=== PATIENT | male | born 1950 | race Caucasian/White ===

== ENCOUNTER 2018-08-03 10:15 | Inpatient (IN) | payer OTHER, MEDICARE ==
[2018-08-03] MEDS ORDERED: SODIUM CHLORIDE 0.9% 1,000 ML IV STA (10:26)
--- NOTE | 2018-08-03 10:27 | ED ---
Chest Pain HPI - General Chief Complaint: Chest Pain Stated Complaint: CHEST PAIN Time Seen by Provider: 08/03/18 10:26 Source: patient, RN notes reviewed, old records reviewed Mode of arrival: ambulatory Limitations: no limitations - History of Present Illness Initial Comments: This is a 68-year-old male the ER for evasive chest pain left-sided chest pain left chest wall pain leg to his back. No shortness of breath. No prior history of similar pain pain. Severe today severe with heaviness on his chest as well. No prior cardiac evaluations. No bowel pain no nausea no vomiting, no diarrhea. No shortness of breath no diaphoresis MD Complaint: chest pain -: days(s) (4) Onset: during rest, during exertion Pain Location: substernal, left chest Pain Radiation: none Severity: moderate Severity scale (1-10): 5 Quality: tightness Consistency: constant Improves With: nothing Worsens With: nothing Anginal Symptoms: dyspnea Other Symptoms: cough - Related Data Home Medications Medication Instructions Recorded Confirmed Aspirin 975 mg PO Q8H PRN 08/03/18 08/03/18 Allergies Allergy/AdvReac Type Severity Reaction Status Date / Time No Known Allergies Allergy Verified 08/03/18 10:56 Review of Systems ROS Statement: Those systems with pertinent positive or pertinent negative responses have been documented in the HPI. ROS Other: All systems not noted in ROS Statement are negative. EKG Findings - EKG Comments: EKG Findings:: EKG shows sinus bradycardia rate of 58, CT 1:30, QRS 90, QTc 420 Past Medical History Past Medical History: No Reported History History of Any Multi-Drug Resistant Organisms: None Reported Past Surgical History: No Surgical Hx Reported Additional Past Surgical History / Comment(s): neck Past Psychological History: No Psychological Hx Reported Smoking Status: Current every day smoker Past Alcohol Use History: Occasional Past Drug Use History: None Reported General Exam Limitations: no limitations General appearance: alert, in no apparent distress Head exam: Present: atraumatic, normocephalic, normal inspection Eye exam: Present: normal appearance, PERRL, EOMI. Absent: scleral icterus, conjunctival injection, periorbital swelling ENT exam: Present: normal exam, mucous membranes moist Neck exam: Present: normal inspection. Absent: tenderness, meningismus, lymphadenopathy Respiratory exam: Present: normal lung sounds bilaterally. Absent: respiratory distress, wheezes, rales, rhonchi, stridor Cardiovascular Exam: Present: regular rate, normal rhythm, normal heart sounds. Absent: systolic murmur, diastolic murmur, rubs, gallop, clicks GI/Abdominal exam: Present: soft, normal bowel sounds. Absent: distended, tenderness, guarding, rebound, rigid Extremities exam: Present: normal inspection, full ROM, normal capillary refill. Absent: tenderness, pedal edema, joint swelling, calf tenderness Back exam: Present: normal inspection Neurological exam: Present: alert, oriented X3, CN II-XII intact Psychiatric exam: Present: normal affect, normal mood Skin exam: Present: warm, dry, intact, normal color. Absent: rash Course Vital Signs 08/03/18 08/03/18 10:17 10:49 Temperature 97.9 F Pulse Rate 71 Pulse Rate [ 65 English As A Second Language [employer] ] Respiratory 22 Rate Blood Pressure 173/95 O2 Sat by Pulse 99 Oximetry - Reevaluation(s) Reevaluation #1: 08/03/18 15:08 Medical record reviewed Reevaluation #2: 08/03/18 15:08 Patient does have continue persistent chest pain Chest Pain MDM - MDM 68 male the ER for evaluation be admitted for multifactorial chest pain, patient does have a left lung mass which could because of pain, patient has left -sided chest pain which could be from his heart and elevated pancreatic enzymes but no no abdominal pain currently. We did have CT chest abdomen pelvis ultrasound gallbladder showing the above findings Disposition Clinical Impression: Chest pain, Pancreatitis, Lung mass Disposition: ADMITTED IP TO THIS HOSP Condition: Undetermined Instructions (If sedation given, give patient instructions): Chest Pain (ED) Is patient prescribed a controlled substance at d/c from ED?: No Referrals: [facility],Clinic [Primary Care Provider] - 1-2 days
[2018-08-03 11:17] LABS: Basophils % (A) 0 %; Eosinophils # (A) 0.2 k/uL (0-0.7); Eosinophils % (A) 2 %; Lymphocytes # (A) 1.5 k/uL (1.0-4.8); Lymphocytes % (A) 18 %; MCH 28.2 pg (25.0-35.0); MCHC 31.8 g/dL (31.0-37.0); MCV 88.5 fL (80.0-100.0); Mean Platelet Volume 7.3; Monocytes # (A) 0.4 k/uL (0-1.0); Monocytes % (A) 5 %; Neutrophils # (A) 6.2 k/uL (1.3-7.7); Neutrophils % (A) 73 %; Platelet Count 257 k/uL (150-450); RBC 4.97 m/uL (4.30-5.90); RDW 14.1 % (11.5-15.5); WBC 8.5 k/uL (3.8-10.6)
[2018-08-03 11:25] LABS: ALT 20 U/L (21-72); AST 19 U/L (17-59); Albumin 4.1 g/dL (3.5-5.0); Alkaline Phosphatase 62 U/L (38-126); Anion Gap 8 mmol/L; Blood Urea Nitrogen 20 mg/dL (9-20); Calcium 9.6 mg/dL (8.4-10.2); Carbon Dioxide 24 mmol/L (22-30); Chloride 109 mmol/L (98-107); Glucose 107 mg/dL (74-99); Lipase 755 U/L (23-300); Magnesium 1.9 mg/dL (1.6-2.3); Potassium 4.8 mmol/L (3.5-5.1); Sodium 141 mmol/L (137-145); Total Bilirubin 0.4 mg/dL (0.2-1.3); Total Protein 7.2 g/dL (6.3-8.2)
[2018-08-03 11:28] LABS: D-Dimer 0.53 mg/L FEU (<0.60); INR 0.9 (<1.2); Partial Thromboplastin Time 24.6 sec (22.0-30.0); Prothrombin Time 9.9 sec (9.0-12.0)
[2018-08-03 11:41] LABS: Creatine Kinase 52 U/L (55-170)
[2018-08-03 11:54] LABS: Creatine Kinase MB 0.7 ng/mL (0.0-2.4); Troponin I <0.012 ng/mL (0.000-0.034)
--- NOTE | 2018-08-03 11:59 | XR ---
EXAMINATION TYPE: XR chest 2V DATE OF EXAM: 08/03/2018 COMPARISON: NONE HISTORY: Shortness of breath TECHNIQUE: Frontal and lateral views of the chest are obtained. FINDINGS: Scattered senescent parenchymal changes noted. Hyperinflation compatible with COPD. No evidence for infiltrate. No evidence for atelectasis. Heart size is stable. Mediastinal structures are stable and grossly unremarkable. No evidence for hilar prominence. Degenerative changes dorsal spine. IMPRESSION: 1. No evidence for acute pulmonary disease.
--- NOTE | 2018-08-03 12:12 | CT ---
EXAMINATION TYPE: CT angio chest DATE OF EXAM: 08/03/2018 COMPARISON: HISTORY: Chest pain CT DLP: 1071.1 mGycm Automated exposure control for dose reduction was used. CONTRAST: CTA scan of the thorax is performed with IV Contrast, patient injected with 100 mL of Isovue 370, pul monary embolism protocol. MIP images are created and reviewed. 3D reconstructed images are created on an independent workstation and reviewed. FINDINGS: LUNGS: The lungs are remarkable for a left lower lobe spiculated mass measuring approximately 2 cm x 1.6 cm x 2.2 cm with pleural extension. Central focus of air density is present. There is no pleural effusion or pneumothorax seen. The tracheobronchial tree is patent. AORTA: No additional significant abnormality is seen. MEDIASTINUM: There is satisfactory enhancement of the pulmonary artery and its branches, there is no CT evidence for pulmonary embolism. There are no greater than 1 cm hilar or mediastinal lymph nodes. No pericardial effusion is seen. OTHER: No additional significant abnormality is seen. IMPRESSION: LEFT LOWER LOBE LUNG MASS WORRISOME FOR BRONCHOGENIC CARCINOMA.
--- NOTE | 2018-08-03 12:20 | CT ---
EXAMINATION TYPE: CT abdomen pelvis w con DATE OF EXAM: 08/03/2018 COMPARISON: None HISTORY: chest pain, lung mass CT DLP: 1071.1 mGycm Automated exposure control for dose reduction was used. TECHNIQUE: Helical acquisition of images from the lung bases through the pelvis have been completed. CONTRAST: Performed without Oral Contrast and with IV Contrast, patient injected with 100 mL of Isovue 370. FINDINGS: LUNG BASES: No significant abnormality is appreciated. AORTA: No significant abnormality is appreciated. LIVER/GB: Multiple low dense foci within the liver likely represent cysts. Gallbladder is remarkable for some luminal abnormalities which may represent gallstones. PANCREAS: No significant abnormality is seen. SPLEEN: No significant abnormality is seen. ADRENALS: No significant abnormality is seen. KIDNEYS: No significant abnormality is seen. REPRODUCTIVE ORGANS: Prostate is enlarged shows associated calcifications BOWEL: Diverticular changes associated with the sigmoid colon FREE AIR: No Free Air visible. ASCITES: None visible. PELVIC ADENOPATHY: None visualized. RETROPERITONEAL ADENOPATHY: No Retroperitoneal Adenopathy visible. URINARY BLADDER: No significant abnormality is seen. OSSEOUS STRUCTURES: Osteoarthritic change is present within the hips, degenerative disc changes and facet arthropathy visualized lumbar spine.. IMPRESSION: DIVERTICULOSIS. PROBABLE CHOLELITHIASIS. LOW DENSE FOCI SCATTERED WITHIN THE LIVER STATISTICALLY ARE LIKELY PRESENT CYST. ADDITIONAL FINDINGS ABOVE.
--- NOTE | 2018-08-03 13:31 | US ---
EXAMINATION TYPE: US gallbladder DATE OF EXAM: 08/03/2018 COMPARISON: CT 08/03/2018 CLINICAL HISTORY: Pain. EXAM MEASUREMENTS: Liver Length: 15.0 cm Gallbladder Wall: 0.1 cm CBD: 0.4 cm Right Kidney: 10.5 x 4.8 x 5.4 cm Pancreas: Obscured by bowel gas Liver: Cystic area right lobe measuring 0.8 x 0.8 x 1.2 cm Gallbladder: Multiple non-mobile echogenic areas visualized, possible polyps vs other. Sludge visual ized Evidence for sonographic Avendaño's sign: No CBD: wnl as visualized, limited due to overlying bowel gas Right Kidney: No hydronephrosis or masses seen IMPRESSION: 1. Adherent gallstones and/or polyps. Sludge debris noted. 2. Simple appearing cyst right hepatic lobe.
[2018-08-03] MEDS ORDERED: MORPHINE SULFATE 4 MG/ML SYRINGE IV PRN (15:09)
[2018-08-03] MEDS ORDERED: ASPIRIN 81 MG PO STA (15:09)
[2018-08-03] MEDS ORDERED: NITROGLYCERIN SL TABS 0.4 MG TAB SUBLINGUAL PRN (15:09)
[2018-08-03 18:35] LABS: Creatine Kinase MB 0.8 ng/mL (0.0-2.4)
[2018-08-03 18:50] LABS: Troponin I 0.052 ng/mL (0.000-0.034)
[2018-08-03] MEDS: SODIUM CHLORIDE 0.9% 1,000 ML IV SCH (21:25)
[2018-08-03 23:57] LABS: Creatine Kinase MB 0.8 ng/mL (0.0-2.4)
[2018-08-04] LABS: Troponin I 0.108 ng/mL (0.000-0.034)
[2018-08-04] MEDS: SODIUM CHLORIDE 0.9% 1,000 ML IV SCH ×3 (02:49→20:13)
[2018-08-04 07:10] LABS: Cholesterol 215 mg/dL (<200); HDL Cholesterol 41 mg/dL (40-60); LDL Cholesterol,Calculated 130 mg/dL (0-99); Lipase 113 U/L (23-300); Triglycerides 218 mg/dL (<150)
[2018-08-04] MEDS ORDERED: ASPIRIN 325 MG TAB PO SCH (09:00)
[2018-08-04] MEDS ORDERED: ENOXAPARIN 40 MG/0.4 ML SYRINGE SQ SCH (09:00)
[2018-08-04] MEDS ORDERED: ALPRAZolam 0.5 MG TAB PO PRN (09:18)
[2018-08-04] MEDS ORDERED: ALPRAZolam 0.25 MG TAB PO PRN (09:18)
[2018-08-04] MEDS ORDERED: ATORVASTATIN 80 MG TAB PO STA (09:18)
--- NOTE | 2018-08-04 09:30 | P.CRDCN ---
History of Present Illness Consult date: 08/04/18 Requesting physician: Brigitte Camargo Reason for Consult (text): chest pain Chief complaint: chest pain History of present illness: This is a pleasant 68-year-old gentleman with no significant past medical history. He has a current every day smoker smokes about half a pack to a pack per day for the last 50 years. Denies significant family history of premature CAD. No documented history of CAD. Presented to the emergency department with complaints of left precordial pain he described as "a baseball bat pressing against my chest" with some radiation to the left side of the neck. An ongoing intermittently over the last week or so, one episode with activity but mostly occurring with rest and waking him from sleep. They have some episodes of diaphoresis with it. Typically lasts 10-15 minutes at a time relieved with multiple doses of aspirin at home. EKG on admission showed sinus rhythm with anterolateral ST-T wave abnormalities. Did undergo CT of the chest in ER to rule out PE and this showed no evidence of PE but did show evidence of left lower lobe spiculated mass measuring approximately 2 cm x 1.6 cm x 2.2 cm with pleural extension worrisome for bronchogenic carcinoma. This x-ray showed no evidence for acute pulmonary disease. Patient was noted to have elevated lipase and CT of abdomen and pelvis showed diverticulosis and probable cholelithiasis. Ultrasound of the gallbladder showed adherent gallstones and/ or polyps, sludge debris noted and simple-appearing cysts in the right hepatic lobe. Laboratory evaluation normal CBC, normal d-dimer, BUN 20, creatinine 0.89 and a lipase of 755. Troponins came back at less than 0.012, 0.052, 0.108 , and 0.090. Lipids came back to show cholesterol 215, triglycerides 218, LDL 130 and HDL of 41. Patient continues to have intermittent episodes of chest discomfort, relieved with nitro times one. Repeat EKGs continued to show significant ST-T wave abnormalities suggestive of anterior non-ST elevation PR. Past Medical History Past Medical History: No Reported History Additional Past Medical History / Comment(s): bronchitis, chronic lower back pain/ddd, hx of rt leg fx-no sx jut casted History of Any Multi-Drug Resistant Organisms: None Reported Past Surgical History: No Surgical Hx Reported Additional Past Surgical History / Comment(s): neck sx-cervical discectomy, rt side benign salivary rowth removed Past Anesthesia/Blood Transfusion Reactions: No Reported Reaction Smoking Status: Current every day smoker - Past Family History Father Additional Family Medical History / Comment(s): arrythmia. inhis 70's Mother Family Medical History: Cancer Additional Family Medical History / Comment(s): age 57 from lung cancer- was non smoker. Medications and Allergies Home Medications Medication Instructions Recorded Confirmed Type Aspirin 975 mg PO Q8H PRN 08/03/18 08/03/18 History Allergies Allergy/AdvReac Type Severity Reaction Status Date / Time No Known Allergies Allergy Verified 08/03/18 10:56 Physical Exam Vitals: Vital Signs Temp Pulse Pulse Resp BP BP Pulse Ox 08/04/18 07:50 97.5 F L 57 L 18 138/74 96 08/04/18 04:00 98.4 F 64 20 130/77 94 L 08/04/18 00:00 98.8 F 57 L 18 104/68 95 08/03/18 20:00 98.4 F 75 18 95/65 96 08/03/18 17:15 97.6 F 58 L 16 141/81 98 08/03/18 17:02 98.2 F 56 L 16 121/65 98 08/03/18 14:00 78 18 152/84 97 08/03/18 10:49 65 08/03/18 10:17 97.9 F 71 22 173/95 99 Intake and Output 08/03/18 08/04/18 08/04/18 22:59 06:59 14:59 Other: Voiding Method Toilet Toilet Urinal Urinal # Voids 1 1 Weight 83.2 kg PHYSICAL EXAMINATION: HEENT: Head is atraumatic, normocephalic. Pupils equal, round. Neck is supple. There is no elevated jugular venous pressure. HEART EXAMINATION: Heart sounds regular, S1 and S2 normal. No murmur or gallop heard. CHEST EXAMINATION: Lungs are clear to auscultation and precussion. No chest wall tenderness is noted on palpation or with deep breathing. ABDOMEN: Soft, nontender. Bowel sounds are heard. No organomegaly noted. EXTREMITIES: 2+ peripheral pulses with no evidence of peripheral edema and no calf tenderness noted. NEUROLOGIC patient is awake, alert and oriented x3. . Results 08/04/18 05:54 08/03/18 10:45 Cardiac Enzymes 08/03/18 08/03/18 08/03/18 Range/Units 10:45 10:45 17:40 AST 19 (17-59) U/L CK-MB (CK-2) 0.7 0.8 (0.0-2.4) ng/mL Troponin I <0.012 0.052 H* (0.000-0.034) ng/mL 08/03/18 Range/Units 22:52 AST (17-59) U/L CK-MB (CK-2) 0.8 (0.0-2.4) ng/mL Troponin I 0.108 H* (0.000-0.034) ng/mL Coagulation 08/03/18 Range/Units 10:45 PT 9.9 (9.0-12.0) sec APTT 24.6 (22.0-30.0) sec Lipids 08/04/18 Range/Units 05:54 Triglycerides 218 H (<150) mg/dL Cholesterol 215 H (<200) mg/dL HDL Cholesterol 41 (40-60) mg/dL CBC 08/03/18 Range/Units 10:45 WBC 8.5 (3.8-10.6) k/uL RBC 4.97 (4.30-5.90) m/uL Hgb 14.0 (13.0-17.5) gm/dL Hct 44.0 (39.0-53.0) % Plt Count 257 (150-450) k/uL Comprehensive Metabolic Panel 08/03/18 Range/Units 10:45 Sodium 141 (137-145) mmol/L Potassium 4.8 (3.5-5.1) mmol/L Chloride 109 H (98-107) mmol/L Carbon Dioxide 24 (22-30) mmol/L BUN 20 (9-20) mg/dL Creatinine 0.89 (0.66-1.25) mg/dL Glucose 107 H (74-99) mg/dL Calcium 9.6 (8.4-10.2) mg/dL AST 19 (17-59) U/L ALT 20 L (21-72) U/L Alkaline Phosphatase 62 (38-126) U/L Total Protein 7.2 (6.3-8.2) g/dL Albumin 4.1 (3.5-5.0) g/dL Current Medications Generic Name Dose Route Start Last Admin Trade Name Freq PRN Reason Stop Dose Admin Aspirin 325 mg 08/04/18 09:00 Aspirin PO DAILY [facility] Enoxaparin Sodium 40 mg 08/04/18 09:00 Lovenox SQ DAILY [facility] Sodium Chloride 1,000 mls @ 125 mls/hr 08/03/18 19:15 08/04/18 02:49 Saline 0.9% IV 125 mls/hr .Q8H MADELEINE Administration Morphine Sulfate 4 mg 08/03/18 15:09 Morphine Sulfate (Inj) IV Q4HR PRN Chest Pain Nitroglycerin 0.4 mg 08/03/18 15:09 08/04/18 08:40 Nitrostat SUBLINGUAL 0.4 mg Q5M PRN Administration Chest Pain Intake and Output 08/03/18 08/04/18 08/04/18 22:59 06:59 14:59 Other: Voiding Method Toilet Toilet Urinal Urinal # Voids 1 1 Weight 83.2 kg 08/03/18 10:45 08/03/18 10:45 Assessment and Plan Assessment: #1 non-ST elevation PR #2 left lower lobe mass, worrisome for bronchogenic carcinoma #3 nicotine dependence #4 hyperlipidemia #5 elevated lipase, resolved Plan: From cardiology's perspective, patient will require cardiac catheterization for further evaluation and likely CAD. Discussed procedure, risks and benefits with the patient. Dr. Owens also discussed the patient with Dr. Knott who will need to evaluate the patient for lung CA. Further recommendations to follow after cardiac catheterization. F[employer] note has been reviewed, I agree with a documented findings and plan of care. Patient was seen and examined.
[2018-08-04] MEDS ORDERED: HEPARIN SODIUM,PORCINE 5,000 UNIT/ML 1 ML VIAL IV ONE (09:34)
[2018-08-04] MEDS ORDERED: HEPARIN SODIUM,PORCINE 5,000 UNIT/ML 1 ML VIAL IV PRN (09:34)
[2018-08-04 09:43] LABS: Basophils % (A) 1 %; Eosinophils # (A) 0.3 k/uL (0-0.7); Eosinophils % (A) 3 %; HCT 43.1 % (39.0-53.0); HGB 13.7 gm/dL (13.0-17.5); Lymphocytes % (A) 26 %; MCH 28.4 pg (25.0-35.0); MCHC 31.8 g/dL (31.0-37.0); MCV 89.3 fL (80.0-100.0); Monocytes # (A) 0.5 k/uL (0-1.0); Monocytes % (A) 7 %; Neutrophils % (A) 63 %; Platelet Count 258 k/uL (150-450); RBC 4.83 m/uL (4.30-5.90); RDW 14.1 % (11.5-15.5)
[2018-08-04] MEDS ORDERED: HEPARIN SOD,PORK IN 0.45% NACL 25,000 UNIT in 0.45% NACL 1 250ML.BAG IV SCH (09:45)
[2018-08-04 09:51] LABS: INR 0.9 (<1.2); Partial Thromboplastin Time 25.7 sec (22.0-30.0); Prothrombin Time 10.2 sec (9.0-12.0)
--- NOTE | 2018-08-04 10:04 | ECHOF ---
Referral Reason:chest pain MEASUREMENTS -------- HEIGHT: 180.3 cm WEIGHT: 83.0 kg BP: IVSd: 1.2 cm (0.6 - 1.1) LVIDd: 4.6 cm (3.9 - 5.3) LVPWd: 1.3 cm (0.6 - 1.1) IVSs: 1.5 cm LVIDs: 3.0 cm LVPWs: 1.7 cm Ao Diam: 3.4 cm (2.0 - 3.7) AV Cusp: 1.9 cm (1.5 - 2.6) LA Diam: 2.6 cm (2.7 - 3.8) MV EXCURSION: 18.048 mm (> 18.000) MV EF SLOPE: 108 mm/s (70 - 150) EPSS: 2.0 cm MV E Genaro: 0.70 m/s MV DecT: 266 ms MV A Genaro: 0.59 m/s MV E/A Ratio: 1.19 RAP: 5.00 mmHg RVSP: 12.42 mmHg FINDINGS -------- Sinus rhythm. This was a technically good study. The left ventricular size is normal. There is mild concentric left ventricular hypertrophy. Overa ll left ventricular systolic function is normal with, an EF between 55 - 60 %. The right ventricle is normal in size and function. The left atrium is normal in size. The right atrium is normal in size. The aortic valve is trileaflet, and appears structurally normal. No aortic stenosis or regurgitation. There is trace mitral regurgitation. Trace tricuspid regurgitation present. The right ventricular systolic pressure, as measured by Dopp ler, is 12.42mmHg. Pulmonic valve appears structurally normal. The aortic root size is normal. Normal inferior vena cava with normal inspiratory collapse consistent with estimated right atrial pre ssure of 5 mmHg. The pericardium is normal. CONCLUSIONS -------- 1. Sinus rhythm. 2. This was a technically good study. 3. The left ventricular size is normal. 4. There is mild concentric left ventricular hypertrophy. 5. Overall left ventricular systolic function is normal with, an EF between 55 - 60 %. 6. The right ventricle is normal in size and function. 7. The left atrium is normal in size. 8. The right atrium is normal in size. 9. The aortic valve is trileaflet, and appears structurally normal. No aortic stenosis or regurgitati on. 10. There is trace mitral regurgitation. 11. Trace tricuspid regurgitation present. 12. The right ventricular systolic pressure, as measured by Doppler, is 12.42mmHg. 13. Pulmonic valve appears structurally normal. 14. The aortic root size is normal. 15. Normal inferior vena cava with normal inspiratory collapse consistent with estimated right atrial pressure of 5 mmHg. 16. The pericardium is normal. [employer]: Fabiola Pina RDCS
[2018-08-04] MEDS ORDERED: LIDOCAINE 1% INJ 10MG/ML (20 ML MDV) ONE (10:42)
--- NOTE | 2018-08-04 10:46 | P.HPIM ---
History of Present Illness 68-year-old the history of smoking 1 pack per day probably 50 pack year history of smoking came in with complaints of chest pressure-like sensation was started as today lasted for 15 minutes on and off nonexertional on the left side of the chest radiating to the neck area associated some lightheadedness, possible diaphoresis denied any fever chills denied any cough presently patient had About a week ago. Patient chest pressure is moderate severity's 5-6/10 relieved by nitroglycerin. Patient is minimally elevated troponin 0.06 and the EKG showed some significant ST-T wave abnormalities in the anterior leads. Patient was ordered by cardiology and is going for cardiac catheterization today Patient is also found to have a small mass about 2 x 2 cm in the left lower lung. Patient does have family history of bronchial because her mother is also an incidental finding of cholelithiasis without any abdominal pain. Review of Systems REVIEW OF SYSTEMS: CONSTITUTIONAL: No fever, no malaise, no fatigue. HEENT: No recent visual problems or hearing problems. Denied any sore throat. CARDIOVASCULAR: No orthopnea, PND, no palpitations, no syncope. PULMONARY: No shortness of breath, no cough, no hemoptysis. GASTROINTESTINAL: No diarrhea, no nausea, no vomiting, no abdominal pain. NEUROLOGICAL: No headaches, no weakness, no numbness. HEMATOLOGICAL: Denies any bleeding or petechiae. GENITOURINARY: Denies any burning micturition, frequency, or urgency. MUSCULOSKELETAL/RHEUMATOLOGICAL: Denies any joint pain, swelling, or any muscle pain. ENDOCRINE: Denies any polyuria or polydipsia. The rest of the 14-point review of systems is negative. Past Medical History Past Medical History: No Reported History Additional Past Medical History / Comment(s): bronchitis, chronic lower back pain/ddd, hx of rt leg fx-no sx jut casted History of Any Multi-Drug Resistant Organisms: None Reported Past Surgical History: No Surgical Hx Reported Additional Past Surgical History / Comment(s): neck sx-cervical discectomy, rt side benign salivary rowth removed Past Anesthesia/Blood Transfusion Reactions: No Reported Reaction Smoking Status: Current every day smoker - Past Family History Father Additional Family Medical History / Comment(s): arrythmia. inhis 70's Mother Family Medical History: Cancer Additional Family Medical History / Comment(s): age 57 from lung cancer- was non smoker. Medications and Allergies Home Medications Medication Instructions Recorded Confirmed Type Aspirin 975 mg PO Q8H PRN 08/03/18 08/03/18 History Allergies Allergy/AdvReac Type Severity Reaction Status Date / Time No Known Allergies Allergy Verified 08/03/18 10:56 Physical Exam Vitals: Vital Signs Temp Pulse Pulse Resp BP BP Pulse Ox 08/04/18 07:50 97.5 F L 57 L 18 138/74 96 08/04/18 04:00 98.4 F 64 20 130/77 94 L 08/04/18 00:00 98.8 F 57 L 18 104/68 95 08/03/18 20:00 98.4 F 75 18 95/65 96 08/03/18 17:15 97.6 F 58 L 16 141/81 98 08/03/18 17:02 98.2 F 56 L 16 121/65 98 08/03/18 14:00 78 18 152/84 97 08/03/18 10:49 65 Intake and Output 08/03/18 08/04/18 08/04/18 22:59 06:59 14:59 Other: Voiding Method Toilet Toilet Urinal Urinal # Voids 1 1 Weight 83.2 kg PHYSICAL EXAMINATION: GENERAL: The patient is alert and oriented x3, not in any acute distress. Well developed, well nourished. HEENT: Pupils are round and equally reacting to light. EOMI. No scleral icterus. No conjunctival pallor. Normocephalic, atraumatic. No pharyngeal erythema. No thyromegaly. CARDIOVASCULAR: S1 and S2 present. No murmurs, rubs, or gallops. PULMONARY: Chest is clear to auscultation, no wheezing or crackles. ABDOMEN: Soft, nontender, nondistended, normoactive bowel sounds. No palpable organomegaly. MUSCULOSKELETAL: No joint swelling or deformity. EXTREMITIES: No cyanosis, clubbing, or pedal edema. NEUROLOGICAL: Gross neurological examination did not reveal any focal deficits. SKIN: No rashes. Results CBC & Chem 7: 08/04/18 05:54 08/03/18 10:45 Labs: Abnormal Lab Results - Last 24 Hours (Table) 08/03/18 08/03/18 08/03/18 Range/Units 10:45 10:45 17:40 Chloride 109 H (98-107) mmol/L Glucose 107 H (74-99) mg/dL ALT 20 L (21-72) U/L Total Creatine Kinase 52 L 51 L (55-170) U/L Troponin I 0.052 H* (0.000-0.034) ng/mL Triglycerides (<150) mg/dL Cholesterol (<200) mg/dL LDL Cholesterol, Calc (0-99) mg/dL Lipase 755 H (23-300) U/L 08/03/18 08/04/18 08/04/18 Range/Units 22:52 05:54 05:54 Chloride (98-107) mmol/L Glucose (74-99) mg/dL ALT (21-72) U/L Total Creatine Kinase 53 L (55-170) U/L Troponin I 0.108 H* 0.090 H* (0.000-0.034) ng/mL Triglycerides 218 H (<150) mg/dL Cholesterol 215 H (<200) mg/dL LDL Cholesterol, Calc 130 H (0-99) mg/dL Lipase (23-300) U/L Thrombosis Risk Factor Assmnt - Choose All That Apply Any of the Below Risk Factors Present?: No Each Risk Factor Represents 2 Points: Age 61-74 years Other congenital or acquired thrombophilia - If yes, enter type in comment: No Thrombosis Risk Factor Assessment Total Risk Factor Score: 2 Thrombosis Risk Factor Assessment Level: Low Risk Assessment and Plan Plan: -Chest pain, possible non-ST elevation microinfarction patient is presently on heparin patient will probably undergo cardiac catheterization either today or tomorrow continue with beta zoe antiplatelet therapy and statin -Incidental finding of left lower lung lung nodule or mass: Pulmonology was consulted for further evaluation of this nodule. -Cholelithiasis: No further intervention at this time is necessary because patient is asymptomatic at this cholelithiasis -Hyperlipidemia -Nicotine abuse: Counseling was provided
[2018-08-04] MEDS ORDERED: IV FLUID CONTINUATION 1,000 ML IV ONE (10:51)
[2018-08-04] MEDS ORDERED: HEPARIN SODIUM 1,000 UN/ML (10ML VL) ONE (10:52)
[2018-08-04] MEDS ORDERED: VERAPAMIL 2.5 MG/ML 2 ML AMP ONE (10:52)
[2018-08-04] MEDS ORDERED: fentaNYL (PF) 50 MCG/ML 2 ML AMP ONE (10:59)
[2018-08-04] MEDS ORDERED: fentaNYL (PF) 50 MCG/ML 2 ML AMP IVP ONE (11:14)
[2018-08-04] MEDS ORDERED: LIDOCAINE 1% INJ 10MG/ML (20 ML MDV) SQ ONE (11:17)
[2018-08-04] MEDS ORDERED: VERAPAMIL SYRINGE (5 MG/10 ML) INTRAARTER ONE (11:19)
[2018-08-04] MEDS ORDERED: MIDAZOLAM 2 MG/2 ML VIAL IVP ONE (11:20)
[2018-08-04] MEDS ORDERED: BIVALIRUDIN BOLUS 250 MG/50 ML IV ONE (11:28)
[2018-08-04] MEDS ORDERED: TICAGRELOR 90 MG TAB ONE (11:29)
[2018-08-04] MEDS ORDERED: BIVALIRUDIN 250 MG in SODIUM CHLORIDE 0.9% 50 ML IV ONE (11:30)
[2018-08-04] MEDS ORDERED: TICAGRELOR 90 MG TAB PO ONE (11:31)
[2018-08-04] MEDS ORDERED: NITROGLYCERIN 1000MCG/10ML SYRINGE INTRACORON ONE (11:34)
[2018-08-04] MEDS ORDERED: IOPAMIDOL-370 100ML BTL INJ ONE ×2 (11:35→11:45)
[2018-08-04] MEDS ORDERED: ATROPINE SULFATE 0.1 MG/ML 10ML SYRINGE IV PRN (12:01)
[2018-08-04] MEDS ORDERED: MAG HYDROX/AL HYDROX/SIMETH 30 ML CUP PO PRN (12:01)
[2018-08-04] MEDS ORDERED: ZOLPIDEM 5 MG TAB PO PRN (12:01)
[2018-08-04] MEDS ORDERED: RX INFO: IV CONTRAST WAS GIVEN 1 EACH MISC MISCELLANE PRN (12:01)
[2018-08-04] MEDS ORDERED: NITROGLYCERIN SL TABS 0.4 MG TAB SUBLINGUAL PRN (12:01)
[2018-08-04] MEDS ORDERED: SODIUM CHLORIDE 0.9% 1,000 ML IV SCH (12:15)
[2018-08-04 13:44] VITALS: BMI 25.5
--- NOTE | 2018-08-04 15:28 | CC ---
CARDIAC CATHETERIZATION REPORT Mr. Gaspar is a 68-year-old male who is followed at the [facility] in [place], who presented with symptoms of chest discomfort associated with T-wave inversion in the anterior leads and troponin elevation consistent with non ST-segment elevation myocardial infarction in the LAD territory. In view of that, recommendation made regarding cardiac catheterization. The procedure, risks and complications were discussed with the patient who is in full understanding and agreement. On presentation, he had a CAT scan of the chest that showed a mass in the lung highly suspicious of malignancy. His case was discussed with Dr. Knott and the plan was if needed, percutaneous revascularization will be done with a bare metal stent to be able to proceed with further investigation and intervention on the lung mass. Those findings and recommendation were discussed with the patient who is in full understanding and agreement. PROCEDURE: Patient was brought to the label maker in a fasting semi-sedated state after receiving fentanyl and Benadryl and achieving moderate conscious sedated state. Using Xylocaine anesthesia and Seldinger technique, a 6-Faroese sheath was introduced in the right radial artery. Selective right and left angiography was performed using 5-Faroese 3.5 bend right and left Eric catheter, multiple views of the coronary artery including hemiaxial views obtained. Following that, angioplasty and stenting was performed. Following that, a 5-Faroese tight pigtail catheter was introduced into the left ventricle and a 30 degree RENDON view of the left ventricle was obtained. Following that, catheter and sheath were removed. Hemostasis was obtained with deployment of a TR band. There was no immediate complication. Patient was returned to his room in stable condition. FINDINGS: LEFT MAIN: This is a large-sized vessel bifurcating into left circumflex, left anterior descending artery. Left main coronary artery has no evidence of high-grade stenosis. LEFT ANTERIOR DESCENDING ARTERY: This is a large-sized vessel, giving rise to a large diagonal branch in the mid segment in the proximal segment of the LAD. There is a long tubular lesion of 95% with haziness. The rest of the vessel has no high-grade stenosis. LEFT CIRCUMFLEX: This is a nondominant vessel giving rise to two obtuse marginal branches of moderate to large caliber. The left circumflex obtuse marginal branch have 20% to 30% plaque without any evidence of high-grade stenosis. RIGHT CORONARY ARTERY: This is a large dominant vessel bifurcating distally into PDA and posterolateral segment branches. The right coronary artery has diffuse intimal disease in the proximal and distal segment of 20% to 30% without any evidence of high- grade stenosis. LEFT VENTRICULOGRAM: Left ventriculogram is performed in 30 degree RENDON view and revealed normal left ventricular size and systolic function. Ejection fraction is 55%. There was no significant mitral regurgitation. HEMODYNAMICS: There was no gradient across the aortic valve. The left ventricular end- diastolic pressure was 8-12 mmHg. CONCLUSION: 1. Critical stenosis involving the proximal LAD in a long segment. 2. Mild disease in the left circumflex and the right coronary artery. 3. Preserved left ventricular size and systolic function. RECOMMENDATION: In view of finding anatomy, I recommend proceeding with angioplasty and stenting of the LAD. The procedure, risks and complication were discussed with the patient who is in full understanding and agreement. MMODL / IJN: [id number] /
--- NOTE | 2018-08-04 16:10 | PTCA ---
PERCUTANEOUSTRANS CORORONARY ANGIOGRAPHY Mr. Gaspar is a 68-year-old male who presented with a jmg-AE-crhymeg-elevation myocardial infarction in the LAD territory, underwent cardiac catheterization and was found to have critical stenosis involving the proximal LAD. At the same time, he was found to have a mass in the lung, and after discussion with Dr. Knott the plan was to proceed with bare metal stenting to be able to proceed with further intervention on the lung mass in about 6-8 weeks. The procedures, risks and complications were discussed with the patient, who was in full understanding and agreement. PROCEDURE: A 6-Welsh FL3.5 guiding catheter was introduced into the system. After cannulating the left main, a 0.014 balanced medium-weight J-wire was advanced across the lesion and positioned in the distal LAD. Subsequently a 2.75 x 12 mm Trek balloon was advanced, and two inflations to 10 atmospheres were done. Following that, the balloon was removed and a 3.5 x 23 mm Vision stent was deployed, post dilated at 14 atmospheres. After the last inflation, after appropriate wait, the balloon and the guidewire were withdrawn back into the guiding catheter. Images were obtained and repeated. Those images reveal stable successful stenting. At that point, the guiding catheter, the balloon and the guidewire were removed. Left ventriculogram was performed. Following that, catheter and sheaths were removed. Hemostasis was obtained with deployment of a TR band. There was no immediate complication. Patient was returned to his room in stable condition. Of note, the patient received Angiomax per protocol as well as oral loading dose of Brilinta. He had chest discomfort and EKG changes with the inflation that resolved at the end of the procedure. RESULTS: Successful stenting of the proximal LAD in a long segment with reduction of stenosis from 95% to 0%. RECOMMENDATIONS: The patient will be continued on aspirin, Brilinta, statin. He will be evaluated by Dr. Knott and proceed with evaluation for his lung mass and surgery if needed in 6 weeks. Those findings and recommendations were discussed with the patient, and he is in full understanding and agreement. MMODL / IJN: [id number] /
--- NOTE | 2018-08-04 17:29 | P.CNPUL ---
History of Present Illness Consult date: 08/04/18 Reason for consult: lung mass History of present illness: 68-year-old male patient, a chronic smoker located more than 46-[id number] smoking history, who presented to the hospital because of an acute chest pain. The chest pain was associated with some EKG abnormalities in the anterolateral leads as the patient had some ST-T changes. The serial enzymes were slightly abnormal with levels of 0.01 and 0.05 and 0.1 respectively. As part of further investigation a CAT scan of the chest was done that showed no evidence of any pulmonary embolism and there was a 2 x 2.2 x 1.6 cm nodule in the left lower lobe worrisome for bronchogenic carcinoma night of the study itself was quite spiculated. Nevertheless the patient was asymptomatic as he denied having any cough or sputum production or hemoptysis. He has not had any previous CAT scan imaging of the chest. The patient was taken to cardiac catheterization, and the patient underwent a cath and he was found to have critical stenosis involving the proximal LAD. A bare metal stent was placed as the patient would need further intervention on the lung knowing that the left lower lobe lesion was quite suspicious for malignancy. I discussed this with the search engine optimization analyst. The patient is currently on antiplatelet agents with ASA and Brilinta. He is hemodynamically stable. Review of Systems Constitutional: Denies chills, Denies fever Eyes: denies as per HPI, denies blurred vision, denies bulging eye, denies decreased vision, denies diplopia, denies discharge, denies dry eye, denies irritation, denies itching, denies pain, denies photophobia, denies loss of peripheral vision, denies loss of vision, denies tunnel vision/blind spots Ears: deny: decreased hearing, ear discharge, earache, tinnitus Ears, nose, mouth and throat: Denies headache, Denies sore throat Cardiovascular: Reports chest pain Respiratory: Denies cough Gastrointestinal: Reports as per HPI Genitourinary: Reports as per HPI Musculoskeletal: Reports as per HPI Musculoskeletal: absent: ankle pain, ankle stiffness, ankle swelling, as per HPI , elbow pain, elbow stiffness, elbow swelling, foot pain, foot stiffness, foot swelling, hand pain, hand stiffness, hand swelling, hip pain, hip stiffness, hip swelling, knee pain, knee stiffness, knee swelling, shoulder pain, shoulder stiffness, shoulder swelling, wrist pain, wrist stiffness, wrist swelling Integumentary: Reports as per HPI Neurological: Reports as per HPI Psychiatric: Reports as per HPI Endocrine: Reports as per HPI Hematologic/Lymphatic: Reports as per HPI Allergic/Immunologic: Reports as per HPI Past Medical History Past Medical History: No Reported History Additional Past Medical History / Comment(s): Chronic bronchitis, chronic lower back pain/ddd, hx of rt leg fx requiring a cast History of Any Multi-Drug Resistant Organisms: None Reported Past Surgical History: No Surgical Hx Reported Additional Past Surgical History / Comment(s): neck sx-cervical discectomy, rt side benign salivary rowth removed Past Anesthesia/Blood Transfusion Reactions: No Reported Reaction Smoking Status: Current every day smoker - Past Family History Father Additional Family Medical History / Comment(s): arrythmia. inhis 70's Mother Family Medical History: Cancer Additional Family Medical History / Comment(s): age 57 from lung cancer- was non smoker. Medications and Allergies Home Medications Medication Instructions Recorded Confirmed Type Aspirin 975 mg PO Q8H PRN 08/03/18 08/03/18 History Allergies Allergy/AdvReac Type Severity Reaction Status Date / Time No Known Allergies Allergy Verified 08/03/18 10:56 Physical Exam Vitals: Vital Signs Temp Pulse Resp BP Pulse Ox 08/04/18 14:50 55 L 115/73 08/04/18 13:50 53 L 118/71 08/04/18 13:20 56 L 16 108/70 96 08/04/18 12:50 55 L 125/74 08/04/18 12:35 53 L 107/69 08/04/18 12:30 60 16 08/04/18 12:20 60 16 144/75 97 08/04/18 12:05 60 16 118/63 97 08/04/18 07:50 97.5 F L 57 L 18 138/74 96 08/04/18 04:00 98.4 F 64 20 130/77 94 L 08/04/18 00:00 98.8 F 57 L 18 104/68 95 08/03/18 20:00 98.4 F 75 18 95/65 96 Intake and Output 08/04/18 08/04/18 08/04/18 06:59 14:59 22:59 Intake Total 514.8 Balance 514.8 Intake: IV 174.8 Oral 340 Other: Voiding Method Toilet Toilet Urinal Urinal # Voids 1 1 3 Weight 83.2 kg 83.2 kg The patient appeared well nourished and normally developed. Vital signs as documented. Head exam is unremarkable. No scleral icterus or corneal arcus noted. Neck is without jugular venous distension, thyromegaly, or carotid bruits. Carotid upstrokes are brisk bilaterally. Lungs are clear to auscultation and percussion. Cardiac exam reveals the PMI to be normally sized and situated. Rhythm is regular. First and second heart sounds normal. No murmurs, rubs or gallops. Abdominal exam reveals normal bowel sounds, no masses , no organomegaly and no aortic enlargement. Extremities are nonedematous and both femoral and pedal pulses are normal.Examination of the skin revealed no evidence of significant rashes, suspicious appearing nevi or other concerning lesions. Neurologically the patient is awake and alert and is no focal neurological deficits. Results - Laboratory Findings CBC and BMP: 08/04/18 05:54 08/03/18 10:45 PT/INR, D-dimer PT 10.2 sec (9.0-12.0) 08/04/18 05:54 INR 0.9 (<1.2) 08/04/18 05:54 D-Dimer 0.53 mg/L FEU (<0.60) 08/03/18 10:45 Abnormal lab findings: Abnormal Labs 08/03/18 08/03/18 08/03/18 10:45 10:45 17:40 Chloride 109 H Glucose 107 H ALT 20 L Total Creatine Kinase 52 L 51 L Troponin I 0.052 H* Triglycerides Cholesterol LDL Cholesterol, Calc Lipase 755 H 08/03/18 08/04/18 08/04/18 22:52 05:54 05:54 Chloride Glucose ALT Total Creatine Kinase 53 L Troponin I 0.108 H* 0.090 H* Triglycerides 218 H Cholesterol 215 H LDL Cholesterol, Calc 130 H Lipase - Diagnostic Findings CT scan - chest: image reviewed Assessment and Plan Plan: Assessment 1 left lower lobe situated mass measuring 2 x 2.2 x 1.6 cm in size. The finding is highly suspicious for malignancy. Based on the radiographic features and his smoking history, my suspicion for underlying primary bronchogenic carcinoma is high and this is to be worked up on outpatient basis. 2 coronary artery disease with recent non-STEMI and the patient has undergone stenting of the LAD with a bare metal stent. 3 smoker 4 suspect COPD Plan Continue cardiac care. The patient is to be followed up with us on an outpatient basis. He will need a based upon function tests. He will need a PET scan to assess the metabolic activity of the left lower lobe mass and based on that will make a further decision whether the patient would benefit from a left lower lobe resection versus a biopsy. This has been discussed with the patient. Smoking cessation counseling was done. Continue cardiac care. We'll continue to follow.
[2018-08-04] MEDS: TICAGRELOR 90 MG TAB PO SCH (20:13)
[2018-08-05] MEDS: SODIUM CHLORIDE 0.9% 1,000 ML IV SCH ×3 (06:01→18:09)
[2018-08-05 08:00] LABS: Albumin 3.4 g/dL (3.5-5.0); Calcium 8.8 mg/dL (8.4-10.2); Potassium 4.4 mmol/L (3.5-5.1); Total Bilirubin 0.5 mg/dL (0.2-1.3)
[2018-08-05] MEDS: ASPIRIN 81 MG PO SCH (09:10)
[2018-08-05] MEDS: TICAGRELOR 90 MG TAB PO SCH ×2 (09:10→20:20)
--- NOTE | 2018-08-05 10:51 | P.DS ---
Providers Date of admission: 08/04/18 10:21 Attending physician: Brigitte Camargo Consults: 08/03/18 15:09 Consult Physician Routine Consulting Provider: Otilio Knott Consult Reason/Comments: lungmass Do you want consulting provider notified?: Yes 08/03/18 15:10 Consult Physician Urgent Consulting Provider: Anil Barnes Consult Reason/Comments: cp Do you want consulting provider notified?: Yes 08/04/18 12:01 Consult Physician Routine Consulting Provider: [facility] Consult Reason/Comments: Post Interventional patient Do you want consulting provider notified?: Already Contacted Primary care physician: [facility] Course: 68-year-old pleasant gentleman came with chest pain and non-ST elevation microinfarction patient underwent the cardiac catheterization which showed stenosis of LAD patient underwent stenting of the LAD patient will be discharged today after medication reconciliation by cardiology. Patient also is found to have a 2X2. centimeter mass or nodule in the left lower lobe for which patient will follow Dr. Knott for bronchoscopy and biopsy. Patient has an incidental finding of cholelithiasis without any symptoms he'll follow with general surgery as an outpatient. PHYSICAL EXAMINATION: GENERAL: The patient is alert and oriented x3, not in any acute distress. Well developed, well nourished. HEENT: Pupils are round and equally reacting to light. EOMI. No scleral icterus. No conjunctival pallor. Normocephalic, atraumatic. No pharyngeal erythema. No thyromegaly. CARDIOVASCULAR: S1 and S2 present. No murmurs, rubs, or gallops. PULMONARY: Chest is clear to auscultation, no wheezing or crackles. ABDOMEN: Soft, nontender, nondistended, normoactive bowel sounds. No palpable organomegaly. MUSCULOSKELETAL: No joint swelling or deformity. EXTREMITIES: No cyanosis, clubbing, or pedal edema. NEUROLOGICAL: Gross neurological examination did not reveal any focal deficits. SKIN: No rashes. Assessment and Plan Plan: - non-ST elevation myocardial infarction, status post stenting of LAD -Incidental finding of left lower lung lung nodule or mass -Cholelithiasis: -Hyperlipidemia -Nicotine abuse: Counseling was provided Patient Condition at Discharge: Undetermined Plan - Discharge Summary Discharge Rx Participant: No New Discharge Prescriptions: No Action Aspirin 975 mg PO Q8H PRN PRN Reason: Pain Discharge Medication List Aspirin 975 mg PO Q8H PRN 08/03/18 [History] Follow up Appointment(s)/Referral(s): Jb Owens MD [STAFF PHYSICIAN] - 1 Week Otilio Knott MD [STAFF PHYSICIAN] - 1 Week [facility] [Primary Care Provider] - 1-2 days (Per office protocol, you must call to schedule this appointment) Patient Instructions/Handouts: *Surgery [facility] - After Heart Catheterization - Retail Field Representative Instructions, Chest Pain (ED) Activity/Diet/Wound Care/Special Instructions: [facility] contact CM at discharge, may need indigent funds Discharge Disposition: HOME SELF-CARE
--- NOTE | 2018-08-05 12:53 | PN ---
PROGRESS NOTE Mr. Gaspar is a 68-year-old male with prior history of chronic tobacco use who presented with wag-VX-fiphyjo-elevation myocardial infarction. He was found to have a mass in the left lung. He underwent cardiac catheterization and stenting of a long segment of the proximal LAD with a bare metal stent. He was evaluated by Dr. Knott and will be evaluated to undergo a PET scan as an outpatient and subsequently in 6 weeks intervention on the lungs. He is doing well this morning, ambulating without any difficulty, denying any symptoms of chest pain. He denies any dizziness or palpitation. He continues to be on aspirin once a day, Lipitor 80 mg daily, Brilinta 90 mg twice a day. PHYSICAL EXAMINATION: Blood pressure 127/60 with a heart rate in the 50s. LUNGS: Clear. HEART: Regular rate, rhythm S1, S2. No S3. No rub. ABDOMEN: Soft, nontender. EXTREMITIES: No edema. LAB DATA: BUN and creatinine of 17 and 1.03. His peak troponin is 0.1. His LDL is 130. IMPRESSION: 1. Status post uja-BY-gkqwvjo-elevation myocardial infarction with critical stenosis involving the left anterior descending coronary artery, status post bare metal stenting. 2. Mass in the lung suggestive of malignancy, scheduled to undergo further evaluation as an outpatient. 3. Chronic tobacco use. RECOMMENDATIONS: Will continue present therapy, increase his level of activity. Because of his blood pressure and heart rate, we will continue holding beta zoe and MALI inhibitor. If he is stable, I would expect he should be able to be discharged home tomorrow and followed as an outpatient. MMODL / JOSE MARTINN: [id number] /
--- NOTE | 2018-08-05 14:29 | P.PN ---
Subjective Progress Note Date: 08/05/18 Principal diagnosis: Coronary artery disease, status post stenting to the LAD. Left lower lobe spiculated mass. 68-year-old male patient, a chronic smoker located more than 23-[id number] smoking history, who presented to the hospital because of an acute chest pain. The chest pain was associated with some EKG abnormalities in the anterolateral leads as the patient had some ST-T changes. The serial enzymes were slightly abnormal with levels of 0.01 and 0.05 and 0.1 respectively. As part of further investigation a CAT scan of the chest was done that showed no evidence of any pulmonary embolism and there was a 2 x 2.2 x 1.6 cm nodule in the left lower lobe worrisome for bronchogenic carcinoma night of the study itself was quite spiculated. Nevertheless the patient was asymptomatic as he denied having any cough or sputum production or hemoptysis. He has not had any previous CAT scan imaging of the chest. The patient was taken to cardiac catheterization, and the patient underwent a cath and he was found to have critical stenosis involving the proximal LAD. A bare metal stent was placed as the patient would need further intervention on the lung knowing that the left lower lobe lesion was quite suspicious for malignancy. I discussed this with the cement loader. The patient is currently on antiplatelet agents with ASA and Brilinta. He is hemodynamically stable. The patient is seen today 08/05/2017 in follow-up on the selective care unit. He is currently sitting up in a chair at the bedside. He is awake and alert in no acute distress. He is not having any further chest discomfort. No shortness of breath, cough or congestion. He is maintaining good O2 saturations in the mid 90s on room air. He's been afebrile. Hemodynamically stable. Creatinine 1.03. Objective - Vital Signs Vital signs: Vital Signs Temp 97.2 F L 08/05/18 11:05 Pulse 58 L 08/05/18 11:05 Resp 16 08/05/18 11:05 BP 121/70 08/05/18 11:05 Pulse Ox 96 08/05/18 11:05 Intake & Output 08/04/18 08/05/18 08/05/18 18:59 06:59 18:59 Intake Total 754.8 720 Balance 754.8 720 Weight 83.2 kg 82.7 kg Intake: IV 174.8 Oral 580 720 Other: Voiding Method Toilet Urinal # Voids 3 1 1 - Exam GENERAL EXAM: Alert, active, comfortable in no apparent distress. On room air. HEAD: Normocephalic. EYES: Normal reaction of pupils, equal size. NOSE: Clear with pink turbinates. THROAT: No erythema or exudates. NECK: No masses, no JVD. CHEST: No chest wall deformity. LUNGS: Equal air entry with no crackles, wheeze, rhonchi or dullness. CVS: S1 and S2 normal with no audible murmur, regular rhythm. ABDOMEN: No hepatosplenomegaly, normal bowel sounds, no guarding or rigidity. SPINE: No scoliosis or deformity SKIN: No rashes CENTRAL NERVOUS SYSTEM: No focal deficits, tone is normal in all 4 extremities. EXTREMITIES: There is no peripheral edema. No clubbing, no cyanosis. Peripheral pulses are intact. - Labs CBC & Chem 7: 08/04/18 05:54 08/05/18 06:48 Labs: Abnormal Lab Results - Last 24 Hours (Table) 08/05/18 Range/Units 06:48 Chloride 111 H (98-107) mmol/L Total Protein 6.0 L (6.3-8.2) g/dL Albumin 3.4 L (3.5-5.0) g/dL Assessment and Plan Assessment: Impression: #1 Non-ST segment elevation myocardial infarction status post stenting to the LAD with bare-metal stent. #2 Left lower lobe spiculated mass measuring 2 x 2.2 x 1.6 cm in size. Highly suspicious for malignancy. Possibly bronchogenic carcinoma due to a significant smoking history. #3 Chronic and ongoing tobacco dependence. Plan: The patient was seen and evaluated by Dr. Knott. The patient is cleared for discharge from the pulmonary standpoint. He will follow-up in our office where we'll obtain full pulmonary function testing to evaluate the suspected COPD and make further recommendations. He'll also need a PET scan to assess the metabolic activity of the left lower lobe mass. If significant may require left lower lobe resection versus a biopsy. Patient is agreeable to the plan. I, the cosigning physician, performed a history & physical examination of the patient. Lungs sounds are clear. Maintaining good O2 saturations in the 90s on room air. I discussed the assessment and plan of care with my nurse practitioner, Caroline Nevarez. I attest to the above note as dictated by her.
[2018-08-05] MEDS ORDERED: ATORVASTATIN 80 MG TAB PO SCH (21:00)
[2018-08-06] MEDS: ASPIRIN 81 MG PO SCH (08:49)
[2018-08-06] MEDS: TICAGRELOR 90 MG TAB PO SCH (08:49)
--- NOTE | 2018-08-06 10:51 | P.DS ---
Providers Date of admission: 08/04/18 10:21 Attending physician: Brigitte Camargo Consults: 08/03/18 15:09 Consult Physician Routine Consulting Provider: Otilio Knott Consult Reason/Comments: lungmass Do you want consulting provider notified?: Yes 08/03/18 15:10 Consult Physician Urgent Consulting Provider: Anil Barnes Consult Reason/Comments: cp Do you want consulting provider notified?: Yes 08/04/18 12:01 Consult Physician Routine Consulting Provider: [facility] Consult Reason/Comments: Post Interventional patient Do you want consulting provider notified?: Already Contacted Primary care physician: [facility] Hospital Course: Please refer to my discharge summary from yesterday for further details patient was seen and examined today. PHYSICAL EXAMINATION: GENERAL: The patient is alert and oriented x3, not in any acute distress. Well developed, well nourished. HEENT: Pupils are round and equally reacting to light. EOMI. No scleral icterus. No conjunctival pallor. Normocephalic, atraumatic. No pharyngeal erythema. No thyromegaly. CARDIOVASCULAR: S1 and S2 present. No murmurs, rubs, or gallops. PULMONARY: Chest is clear to auscultation, no wheezing or crackles. ABDOMEN: Soft, nontender, nondistended, normoactive bowel sounds. No palpable organomegaly. MUSCULOSKELETAL: No joint swelling or deformity. EXTREMITIES: No cyanosis, clubbing, or pedal edema. NEUROLOGICAL: Gross neurological examination did not reveal any focal deficits. SKIN: No rashes. Patient Condition at Discharge: Undetermined Plan - Discharge Summary Discharge Rx Participant: No New Discharge Prescriptions: No Action Aspirin 975 mg PO Q8H PRN PRN Reason: Pain Discharge Medication List Aspirin 975 mg PO Q8H PRN 08/03/18 [History] Follow up Appointment(s)/Referral(s): Eulogio Melendez MD [Medical Doctor] - 1 Week (offices closed, please call to make a follow up appointment) Clementine Cam NPC [Nurse Practitioner] - 08/08/18 1:30 pm Otilio Knott MD [STAFF PHYSICIAN] - 1 Week (offices closed, please call to make a follow up appointment) [facility] [Primary Care Provider] - 1-2 days (Per office protocol, you must call to schedule this appointment) Patient Instructions/Handouts: *Surgery [facility] - After Heart Catheterization - Rental Representative Instructions, Chest Pain (ED) Activity/Diet/Wound Care/Special Instructions: [facility] - contact CM at discharge, may need indigent funds
[2018-08-06 11:21] VITALS: BP 115/63; PULSE 61; RESP 16; TEMP 97.9
--- NOTE | 2018-08-06 13:45 | PN ---
PROGRESS NOTE Mr. Gaspar is a 68-year-old male who presented with non ST-segment elevation myocardial infarction, underwent cardiac catheterization and stenting of the LAD with a bare metal stent. He was found to have a mass in the left lung and is scheduled to undergo further workup as an outpatient. He has been ambulating without any difficulty, denying any symptoms of chest discomfort. Denies any dizziness or palpitation. He continues to be on aspirin once a day, Brilinta 90 mg twice a day, Lipitor 80 mg daily. PHYSICAL EXAMINATION: Blood pressure 115/60 with a heart rate in the 50s. LUNGS: Clear. Heart regular rate and rhythm S1, S2. No S3. No rub. ABDOMEN: Soft, nontender. EXTREMITIES: No edema. IMPRESSION: 1. Non ST-segment elevation myocardial infarction with stenting of the LAD with a bare metal stent. 2. Spiculated mass in the left lung, highly suspicious of malignancy. 3. Prior history of smoking. 4. Hyperlipidemia. RECOMMENDATIONS: Patient will be discharged home today and followed as an outpatient. If he is stable Brilinta can be stopped in 6 weeks and he can proceed with intervention on the lung mass. MMODL / IJN: [id number] /
== END 2018-08-06 12:34 | disposition home or self-care (01) | DRG 249 ==
LOC: EC 10:15 → 3SCARD 15:13 → INTOOBSV 08-04 10:21 → OBSVTOIN 08-04 10:21
PROVIDERS: ADMIT Hospitalist; ATTEND Hospitalist
PROC: B2111ZZ Fluoroscopy of Multiple Coronary Arteries using Low Osmolar Contrast (ICD-10-PCS; 2018-08-04)
PROC: B2151ZZ Fluoroscopy of Left Heart using Low Osmolar Contrast (ICD-10-PCS; 2018-08-04)
PROC: 02703DZ Dilation of Coronary Artery, One Artery with Intraluminal Device, Percutaneous Approach (ICD-10-PCS; principal; 2018-08-04 10:44)
PROC: 4A023N7 Measurement of Cardiac Sampling and Pressure, Left Heart, Percutaneous Approach (ICD-10-PCS; 2018-08-04 10:44)
DX: I21.4 Non-ST elevation (NSTEMI) myocardial infarction (principal); C34.32 Malignant neoplasm of lower lobe, left bronchus or lung; I25.10 Atherosclerotic heart disease of native coronary artery without angina pectoris; F17.210 Nicotine dependence, cigarettes, uncomplicated; K80.20 Calculus of gallbladder without cholecystitis without obstruction; M54.5 Low back pain; G89.29 Other chronic pain; E78.5 Hyperlipidemia, unspecified; K57.90 Diverticulosis of intestine, part unspecified, without perforation or abscess without bleeding; J42 Unspecified chronic bronchitis; Z80.1 Family history of malignant neoplasm of trachea, bronchus and lung; Z82.49 Family history of ischemic heart disease and other diseases of the circulatory system
CPT/HCPCS: 36415; 71046; 71275; 74177; 76705; 80053; 80061; 82550; 82553; 83690; 83735; 84484; 85025; 85347; 85379; 85610; 85730; 92928; 93005; 93306; 93458; 96360; 99285

== ENCOUNTER → 2018-09-09 | Outpatient (CLI) | payer OTHER, MEDICARE ==
--- NOTE | 2018-09-12 13:30 | PE ---
Nuclear medicine PET/CT HISTORY: Lung carcinoma, initial, solitary pulmonary nodule Patient received 13.5 mCi F-18 FDG intravenously in delayed scanning was performed from the skull bas e to the mid thighs. Localization and attenuation correction CT scan was performed. Neck and chest: Jugulodigastric node shows some associated hypermetabolic uptake is mild. There is up take seen within the left thyroid gland, SUV 3.6 corresponding to focal low attenuation. There is no supraclavicular or cervical adenopathy. Left lower lobe spiculated lung mass with spiculation extensi on to the pleura measures approximately 2 cm in size and shows associated hypermetabolic uptake, SUV is 5.7. No pleural or pericardial effusion. Coronary artery calcifications are present. Abdomen pelvis: No evident adrenal mass. No suspicious hypermetabolic uptake. No retroperitoneal clarence opathy or evident liver mass. Gastric activity, bowel activity is likely physiologic. No free fluid. Osseous structures are within normal limits. IMPRESSION: Findings in the left lower lobe concerning for bronchogenic carcinoma. Hypermetabolic upt cricket within the left thyroid gland is suspicious, additional workup recommended.
== END | disposition home or self-care (01) ==
LOC: RADPETMAIN 13:58
PROVIDERS: ATTEND Internal Medicine Critical Care Medicine
DX: R93.89 Abnormal findings on diagnostic imaging of other specified body structures (principal); R91.8 Other nonspecific abnormal finding of lung field
CPT/HCPCS: 78815; A9552

== ENCOUNTER → 2018-10-23 | Outpatient (CLI) | payer MEDICARE, OTHER ==
[2018-10-23 14:52] LABS: Appearance,Urine Clear (Clear); Bilirubin,Urine Negative (Negative); Blood,Urine Trace (Negative); Color,Urine Yellow; Glucose,Urine (UA) Negative (Negative); Ketones,Urine Negative (Negative); Leukocyte Esterase,Urine Negative (Negative); Mucus,Urine Rare /hpf; Nitrite,Urine Negative (Negative); Protein,Urine Negative (Negative); RBC,Urine 3 /hpf (0-5); Specific Gravity,Urine 1.016 (1.001-1.035); Urobilinogen,Urine <2.0 mg/dL (<2.0); WBC,Urine <1 /hpf (0-5)
[2018-10-23 14:53] LABS: Basophils % (A) 1 %; Eosinophils # (A) 0.2 k/uL (0-0.7); Eosinophils % (A) 3 %; HCT 44.1 % (39.0-53.0); HGB 13.8 gm/dL (13.0-17.5); Lymphocytes # (A) 1.7 k/uL (1.0-4.8); Lymphocytes % (A) 27 %; MCH 28.1 pg (25.0-35.0); MCHC 31.3 g/dL (31.0-37.0); MCV 89.5 fL (80.0-100.0); Mean Platelet Volume 7.4; Monocytes # (A) 0.4 k/uL (0-1.0); Monocytes % (A) 7 %; Neutrophils % (A) 61 %; Platelet Count 255 k/uL (150-450); RBC 4.92 m/uL (4.30-5.90); RDW 15.1 % (11.5-15.5); WBC 6.5 k/uL (3.8-10.6)
[2018-10-23 15:08] LABS: Anion Gap 5 mmol/L; Blood Urea Nitrogen 16 mg/dL (9-20); Carbon Dioxide 30 mmol/L (22-30); Chloride 107 mmol/L (98-107); Glucose 91 mg/dL (74-99); Magnesium 1.8 mg/dL (1.6-2.3); Potassium 4.7 mmol/L (3.5-5.1); Sodium 142 mmol/L (137-145)
[2018-10-23 15:48] LABS: INR 0.9 (<1.2); Partial Thromboplastin Time 25.2 sec (22.0-30.0); Prothrombin Time 10.2 sec (9.0-12.0)
== END | disposition home or self-care (01) ==
LOC: LABPAT 13:38
PROVIDERS: ATTEND Family Medicine
DX: Z01.812 Encounter for preprocedural laboratory examination (principal); C34.32 Malignant neoplasm of lower lobe, left bronchus or lung
CPT/HCPCS: 36415; 80051; 81001; 82565; 82947; 83735; 84520; 85025; 85610; 85730

== ENCOUNTER → 2018-10-24 | Outpatient (CLI) | payer OTHER ==
--- NOTE | 2018-10-24 12:41 | US ---
EXAMINATION TYPE: US thyroid st tissue head/neck DATE OF EXAM: 10/24/2018 COMPARISON: PET 2019 CLINICAL HISTORY: E04.2 Nontoxic multinodular goiter. Nontoxic multinodular goiter. GLAND SIZE: Right Lobe: 5.1 x 1.7 x 2.4 cm Overall Parenchyma: homogenous Left Lobe: 5.8 x 2.0 x 2.6 cm Overall Parenchyma: heterogeneous Isthmus Thickness: 0.3 cm NODULES RIGHT: # of nodules measured on right: 1 1. 0.6 X 0.6 x 0.6 cm mixed nodule at the mid pole with irregular margins. This nodule is as tall as it is wide and shows intranodular vascularity. Prior size: no prior LEFT: # of nodules measured on left: 2 1. 1.6 X 1.4 x 1.4 cm isoechoic solid nodule at the lower pole with irregular margins. This nodule is as tall as it is wide and shows intranodular vascularity. Prior size: no prior 2. 2.2 X 1.6 x 2.2 cm mixed nodule at the mid pole with irregular margins. This nodule is taller th an wide and shows intranodular vascularity. Prior size: no prior ISTHMUS: # of nodules measured in the isthmus: 0 IMPRESSION: Bilateral thyroid nodules in a multinodular goiter. The largest on the left measures up to 2.2 cm. [facility] medicine thyroid uptake scan could evaluate for cold nodule. Alternatively fine-needle aspirati on could be considered.
== END | disposition home or self-care (01) ==
LOC: RADUSWWP 10:43
PROVIDERS: ATTEND Internal Medicine Endocrinology, Diabetes & Metabolism
DX: E04.2 Nontoxic multinodular goiter (principal)
CPT/HCPCS: 76536

== ENCOUNTER 2018-10-26 05:57 | Inpatient (IN) | payer MEDICARE, OTHER ==
[~2018-10-26 05:57] MED LIST: DEXAMETHASONE SOD PHOSPHATE 10 MG/ML 1 ML VIAL IV ONE; LACTATED RINGERS 1,000 ML IV SCH; LIDOCAINE 1% 20 ML VIAL (10MG/ML) FOR IV START INTRADERMA PRN; MIDAZOLAM (PF) 2 MG/2 ML VIAL IV PRN; ONDANSETRON 4 MG/2 ML VIAL IVP ONE; SCOPOLAMINE 1.5MG/72HR PATCH TRANSDERM ONE; ceFAZolin IN SWFI 2 GM/20 ML SYRINGE IVP ONE
[2018-10-26] MEDS ORDERED: HYDROmorphone (PF) 1 MG/ML ONE (07:30)
[2018-10-26] MEDS ORDERED: SUCCINYLCHOLINE CHLORIDE 100 MG/5 ML SYR IV ONE (07:30)
[2018-10-26] MEDS ORDERED: GLYCOPYRROLATE 0.2 MG/ML 2 ML VIAL ONE (07:30)
[2018-10-26] MEDS ORDERED: PROPOFOL 10 MG/ML 20 ML VIAL IV ONE (07:30)
[2018-10-26] MEDS ORDERED: ROCURONIUM BROMIDE 10 MG/ML 10 ML VIAL IV ONE (07:30)
[2018-10-26] MEDS ORDERED: LIDOCAINE 1% INJ 10MG/ML (20 ML MDV) ONE (07:30)
[2018-10-26] MEDS ORDERED: NEOSTIGMINE 1 MG/ML 10 ML VIAL ONE (07:30)
[2018-10-26] MEDS ORDERED: fentaNYL (PF) 50 MCG/ML 2 ML AMP ONE (07:30)
[2018-10-26] MEDS ORDERED: MIDAZOLAM 2 MG/2 ML VIAL ONE (07:30)
[2018-10-26] MEDS ORDERED: BUPIVACAINE (PF) 0.5% 30 ML VIAL SQ ONE (07:59)
[2018-10-26] MEDS ORDERED: LACTATED RINGERS 1,000 ML IV ONE (08:26)
[2018-10-26] MEDS: HYDROmorphone 0.5 MG/0.5 ML SYRINGE IVP PRN ×2 (09:10→09:35)
--- NOTE | 2018-10-26 09:20 | P.OP ---
Date of Procedure: 10/26/18 Preoperative Diagnosis: Lung mass left lower lobe Postoperative Diagnosis: Same Procedure(s) Performed: Left thoracoscopic wedge resection mass left lower lobe Anesthesia: GETA Surgeon: Joshua Arredondo Sleeping Bag Filler #1: Garo Jj Estimated Blood Loss (ml): 40 IV fluids (ml): 1,000 Urine output (ml): 0 Pathology: other (Wedge resection left lower lobe for permanent section and culture including routine AFB and fungal cultures) Condition: stable Disposition: PACU Indications for Procedure: 68-year-old male with new cavitating left lower lobe tumor Operative Findings: Small mass was noted near the fissure with retraction of the visceral pleura in the left lower lobe. This was wedged out with grossly negative margins. It was cut on the back table and noted to have different areas of consistency. Portion of the solid mass was sent for culture. The remainder was sent for permanent section. Staple lines were intact and there was no evidence of air leak from the staple lines on reinflation of the lung. Description of Procedure: The patient was brought to the operating room, placed supine on the operating table, anesthetized and intubated with a double-lumen endotracheal tube. Tube was positioned with fiberoptic bronchoscopy and secured. The patient was turned in the right lateral decubitus position and the left chest sterilely prepped and draped. 2 one-inch incisions were made in the left chest. The left lung was deflated. The video thoracoscope was introduced. The tumor was identified with findings as noted above. Generous wedge resection was performed using multiple firings of Endo REYMUNDO medium thick stapler. Specimen was placed in an Endo Catch bag and brought out onto the field. It was cut on the back table with findings as noted above. 28-Tristanian chest tube was placed posterior apically through a separate stab incision and secured with 0 Ethibond suture. Lung was reflected inflated under thoracoscopic visualization with findings as noted above. Rib blocks were performed at the level of the incision with half percent Marcaine. Incisions were closed with layers of Vicryl suture. Dry sterile dressings were applied the patient was turned supine and extubated and transferred to recovery in stable condition.
[2018-10-26] MEDS ORDERED: IPRATROPIUM-ALBUTEROL 3 ML NEB IH PRN (09:31)
[2018-10-26] MEDS ORDERED: ONDANSETRON 4 MG/2 ML VIAL IVP PRN (09:31)
[2018-10-26] MEDS ORDERED: BISACODYL 10 MG SUPP RECTAL PRN (09:31)
[2018-10-26] MEDS ORDERED: DEXTROSE 5%-0.45% NACL 1,000 ML IV SCH (09:31)
[2018-10-26] MEDS ORDERED: ONDANSETRON 4 MG/2 ML VIAL IVP ONE (09:46)
[2018-10-26] MEDS ORDERED: PROMETHAZINE INJ 25 MG/ML 1 ML VIAL IVPB ONE (10:04)
--- NOTE | 2018-10-26 10:07 | XR ---
EXAMINATION TYPE: XR chest 1V DATE OF EXAM: 10/26/2018 COMPARISON: 08/03/2018 HISTORY: Wedge resection TECHNIQUE: Single frontal view of the chest is obtained. FINDINGS: Left thoracostomy tube has been placed status post left midlung wedge resection. Subcutane ous emphysema seen along the left hemithorax. Platelike atelectasis is present. Reactive pleural thic kening is noted with no discrete pneumothorax is the appearance of the pleura similar to the prior of 08/03/2018. Surgical sutures are seen within the left hilum. Heart is upper limits of normal size. Min imal new right basilar atelectasis is seen. No acute osseous pathology. IMPRESSION: Left thoracostomy tube placement status post left mid lung wedge resection with subcutan eous chest wall emphysema and scattered bibasilar atelectasis. No residual pneumothorax.
[2018-10-26] MEDS: IPRATROPIUM-ALBUTEROL 3 ML NEB IH SCH ×3 (12:42→20:46)
[2018-10-26] MEDS: KETOROLAC 30 MG/ML 1 ML VIAL IVP SCH ×3 (12:48→23:23)
[2018-10-26] MEDS: ACETAMINOPHEN IV (For NPO) 1,000 MG in EMPTY BAG 1 BAG IVPB SCH ×2 (12:49→17:52)
[2018-10-26] MEDS: HEPARIN SODIUM,PORCINE 5,000 UNIT/ML 1 ML VIAL SQ SCH ×2 (17:28→23:24)
[2018-10-26] MEDS: ceFAZolin IN SWFI 2 GM/20 ML SYRINGE IVP SCH ×2 (17:30→23:24)
--- NOTE | 2018-10-26 18:22 | P.CNPUL ---
History of Present Illness Consult date: 10/26/18 Reason for consult: lung mass History of present illness: This is a pleasant 68-year-old male patient with known history of coronary artery disease was found to have a left lower lobe mass that was highly suspicious for malignancy. The patient initially presented to us with shortness of breath and chest pain. He had a significant LAD stenosis and underwent a bare metal stent of the LAD. The patient was placed on a month of Brilinta and then subsequent.. Meanwhile, the spiculated left lower lobe lesion was being monitored closely. I performed a PET scan and it showed marked uptake and the lesion was solitary without any evidence of distant metastases. Based on this, I referred this patient for a surgical resection of the left lower lobe mass and the patient underwent a wedge resection. The intraoperative blood loss was 40 mL and the patient is currently doing was sitting up on a chair and the chest tube is in place with an amount of output and there is no evidence of air leak. He denies having any specific complaints. No chest pain. Hemodynamically stable. No nausea. No vomiting. No other complaints otherwise for now. Review of Systems Constitutional: Denies chills, Denies fever Eyes: denies as per HPI, denies blurred vision, denies bulging eye, denies decreased vision, denies diplopia, denies discharge, denies dry eye, denies irritation, denies itching, denies pain, denies photophobia, denies loss of peripheral vision, denies loss of vision, denies tunnel vision/blind spots Ears: deny: decreased hearing, ear discharge, earache, tinnitus Ears, nose, mouth and throat: Denies headache, Denies sore throat Breasts: absent: as per HPI, gynecomastia Cardiovascular: Denies chest pain, Denies shortness of breath Respiratory: Denies cough Gastrointestinal: Reports as per HPI Genitourinary: Reports as per HPI Musculoskeletal: Reports as per HPI Musculoskeletal: absent: ankle pain, ankle stiffness, ankle swelling, as per HPI, elbow pain, elbow stiffness, elbow swelling, foot pain, foot stiffness, foot swelling, hand pain, hand stiffness, hand swelling, hip pain, hip stiffness, hip swelling, knee pain, knee stiffness, knee swelling, shoulder pain, shoulder stiffness, shoulder swelling, wrist pain, wrist stiffness, wrist swelling Integumentary: Reports as per HPI Neurological: Reports as per HPI Psychiatric: Reports as per HPI Endocrine: Reports as per HPI Hematologic/Lymphatic: Reports as per HPI Allergic/Immunologic: Reports as per HPI Past Medical History Past Medical History: Coronary Artery Disease (CAD), Hyperlipidemia Additional Past Medical History / Comment(s): COPD, left lower lobe mass, coronary artery disease, hyperlipidemia, chronic back pain, degenerative arthritis, recent non-STEMI requiring emergent cardiac catheterization and insertion of a bare metal stent in the LAD., Hx of rt leg fx requiring a cast. History of Any Multi-Drug Resistant Organisms: None Reported Past Surgical History: Heart Catheterization With Stent Additional Past Surgical History / Comment(s): 08/04/18 HEART CATH WITH STENT. neck sx-cervical discectomy, rt side benign salivary Growth removed Past Anesthesia/Blood Transfusion Reactions: No Reported Reaction Date of Last Stent Placement:: 08/05/18 Past Psychological History: No Psychological Hx Reported Smoking Status: Current every day smoker Past Alcohol Use History: Occasional Additional Past Alcohol Use History / Comment(s): started smoking 1965 DOWN TO ABOUT 2 CIGS A DAY. "couple of beers, couple times a week Past Drug Use History: None Reported - Past Family History Father Family Medical History: GI Bleed Additional Family Medical History / Comment(s): arrythmia. AT 72. Mother Family Medical History: Cancer Additional Family Medical History / Comment(s): age 57 from lung cancer- was non smoker. Medications and Allergies Home Medications Medication Instructions Recorded Confirmed Type Aspirin 81 mg PO DAILY chew 08/06/18 10/26/18 Rx Nitroglycerin Sl Tabs [Nitrostat] 0.4 mg SUBLINGUAL Q5M PRN #25 tab 08/06/18 10/26/18 Rx Ticagrelor [Brilinta] 90 mg PO BID #30 tab 08/06/18 10/26/18 Rx Allergies Allergy/AdvReac Type Severity Reaction Status Date / Time No Known Allergies Allergy Verified 10/26/18 10:52 Physical Exam Vitals: Vital Signs Temp Pulse Pulse Pulse Resp BP BP 10/26/18 16:39 68 14 10/26/18 16:29 67 14 10/26/18 15:30 98.7 F 62 18 117/74 10/26/18 11:00 97.1 F L 53 L 18 134/76 10/26/18 10:30 52 L 15 127/72 10/26/18 10:00 54 L 16 141/68 10/26/18 09:39 53 L 15 154/68 10/26/18 09:24 54 L 18 169/72 10/26/18 09:09 58 L 16 149/72 10/26/18 08:54 97.0 F L 58 L 18 160/84 10/26/18 06:39 98.2 F 56 L 18 117/55 Pulse Ox 10/26/18 16:39 10/26/18 16:29 96 10/26/18 15:30 97 10/26/18 11:00 97 10/26/18 10:30 98 10/26/18 10:00 95 10/26/18 09:39 97 10/26/18 09:24 99 10/26/18 09:09 99 10/26/18 08:54 98 10/26/18 06:39 96 Intake and Output 10/26/18 10/26/18 10/26/18 06:59 14:59 22:59 Intake Total 200 1660 480 Output Total 40 56 Balance 200 1620 424 Intake: IV 200 1600 Oral 60 480 Output: Chest Tube Drainage 56 Chest Tube Left Lateral 56 Chest Estimated Blood Loss 40 Other: # Voids 0 Weight 86.5 kg The patient appeared well nourished and normally developed. Vital signs as documented. Head exam is unremarkable. No scleral icterus or corneal arcus noted. Neck is without jugular venous distension, thyromegaly, or carotid bruits. Carotid upstrokes are brisk bilaterally. Lungs are diminished in the left lung base and the patient has a chest tube in place without evidence of any significant air leak and output is minimal at this point in time.. Cardiac exam reveals the PMI to be normally sized and situated. Rhythm is regular. First and second heart sounds normal. No murmurs, rubs or gallops. Abdominal exam reveals normal bowel sounds, no masses, no organomegaly and no aortic enlargement. Extremities are nonedematous and both femoral and pedal pulses are normal.Examination of the skin revealed no evidence of significant rashes, suspicious appearing nevi or other concerning lesions. Neurologically the patient is awake and alert and there is no focal neurological deficits. Results - Diagnostic Findings Chest x-ray: image reviewed Assessment and Plan Plan: 1 left lower lobe mass measuring 2.2 x 2 x 1.6 cm in size and the patient had an outpatient PET scan that showed increased SUV and the findings highly suspicious for malignancy. The patient is post thoracoscopic wedge resection of the lung mass and the patient is currently postop day #0 2 left sided chest tube, post thoracoscopic wedge lung mass resection 3 coronary artery disease with a recent non-STEMI and the patient has undergone stenting of the LAD with a bare metal stent 4 COPD 5 smoker 6 degenerative arthritis 7 chronic back and neck pain Plan Patient is doing well. The chest x-ray postop be showing a left-sided chest t ube and the patient is post wedge resection of left lower lobe mass with some limited success emphysema and some scattered bibasilar atelectatic changes without evidence of any pneumothorax. Provide the patient incentive spirometer. DuoNeb nebulized treatments around the clock. Pain control. Heparin subcu for DVT prophylaxis. IV Kefzol as an empiric antibiotic coverage. Hemodynamically stable. We'll continue to follow.
[2018-10-26 23:50] VITALS: RESP 18
[2018-10-27] MEDS ORDERED: ACETAMINOPHEN TAB 500 MG TAB PO PRN (00:01)
[2018-10-27] MEDS: KETOROLAC 30 MG/ML 1 ML VIAL IVP SCH ×2 (05:36→11:48)
[2018-10-27 07:06] LABS: Basophils % (A) 0 %; Eosinophils # (A) 0.3 k/uL (0-0.7); Eosinophils % (A) 3 %; HCT 38.6 % (39.0-53.0); HGB 12.5 gm/dL (13.0-17.5); Lymphocytes # (A) 1.5 k/uL (1.0-4.8); Lymphocytes % (A) 19 %; MCH 29.4 pg (25.0-35.0); MCHC 32.3 g/dL (31.0-37.0); MCV 91.1 fL (80.0-100.0); Mean Platelet Volume 7.4; Monocytes # (A) 0.4 k/uL (0-1.0); Monocytes % (A) 6 %; Neutrophils # (A) 5.4 k/uL (1.3-7.7); Neutrophils % (A) 69 %; Platelet Count 227 k/uL (150-450); RBC 4.23 m/uL (4.30-5.90); RDW 14.4 % (11.5-15.5); WBC 7.7 k/uL (3.8-10.6)
--- NOTE | 2018-10-27 07:10 | XR ---
EXAMINATION TYPE: XR chest 1V DATE OF EXAM: 10/27/2018 HISTORY: Shortness of breath. COMPARISON: October 26, 2018 TECHNIQUE: Single view of the chest is submitted. FINDINGS: Left-sided chest tube is unchanged in position. No evidence for sizable pneumothorax. Mild left lower lobe pleural-parenchymal opacity. Small amount of subcutaneous air redemonstrated. Right basilar atelectasis. The heart is stable. Hilar and mediastinal structures are within normal limits. Degenerative changes are seen of the dorsal spine. IMPRESSION: 1. Left-sided chest tube is unchanged in position. No evidence for sizable pneumothorax. Mild left l ower lobe pleural-parenchymal opacity. Small amount of subcutaneous air redemonstrated.
[2018-10-27 07:23] LABS: Calcium 8.7 mg/dL (8.4-10.2); Potassium 4.5 mmol/L (3.5-5.1)
[2018-10-27] MEDS: IPRATROPIUM-ALBUTEROL 3 ML NEB IH SCH ×4 (07:50→16:05)
[2018-10-27] MEDS ORDERED: ASPIRIN 81 MG PO SCH (09:00)
[2018-10-27] MEDS: HEPARIN SODIUM,PORCINE 5,000 UNIT/ML 1 ML VIAL SQ SCH (09:24)
--- NOTE | 2018-10-27 12:40 | XR ---
EXAMINATION TYPE: XR chest 2V DATE OF EXAM: 10/27/2018 COMPARISON: 10/27/2018 HISTORY: Shortness of breath TECHNIQUE: Frontal and lateral views of the chest are obtained. FINDINGS: Scattered senescent parenchymal changes noted. Hyperinflation compatible with COPD. Left-sided chest tube has been removed. No evidence for residual pneumothorax. Nodular density left h ilum. Heart size is stable. Mediastinal structures are stable and grossly unremarkable. No evidence for hilar prominence. Degenerative changes dorsal spine. IMPRESSION: 1. Left-sided chest tube has been removed. No evidence for residual pneumothorax. Nodular density lef t hilum.
[2018-10-27 13:57] VITALS: BP 105/59; PULSE 67; TEMP 97.8
--- NOTE | 2018-10-27 17:07 | P.PN ---
Subjective Progress Note Date: 10/27/18 Principal diagnosis: Left lower lobe mass. Status post thorascopic wedge resection. This is a pleasant 68-year-old male patient with known history of coronary artery disease was found to have a left lower lobe mass that was highly suspicious for malignancy. The patient initially presented to us with shortness of breath and chest pain. He had a significant LAD stenosis and underwent a bare metal stent of the LAD. The patient was placed on a month of Brilinta and then subsequent.. Meanwhile, the spiculated left lower lobe lesion was being monitored closely. I performed a PET scan and it showed marked uptake and the lesion was solitary without any evidence of distant metastases. Based on this, I referred this patient for a surgical resection of the left lower lobe mass and the patient underwent a wedge resection. The intraoperative blood loss was 40 mL and the patient is currently doing was sitting up on a chair and the chest tube is in place with an amount of output and there is no evidence of air leak. He denies having any specific complaints. No chest pain. Hemodynamically stable. No nausea. No vomiting. No other complaints otherwise for now. The patient is seen today 10/27/2018 in follow-up on the selective care unit. He is awake and alert in no acute distress. He denies any worsening shortness of breath, cough or congestion. His pain is well controlled. He is maintaining good O2 saturations in the 90s on room air. Chest x-ray shows no sizable pneumothorax. There is a mid left lower lobe pleuroparenchymal opacity. He's been afebrile. Hemodynamically stable. Cultures and pathology pending. White count 7.7. Hemoglobin 12.5. Creatinine 1.07. Objective - Vital Signs Vital signs: Vital Signs Temp 97.8 F 10/27/18 11:40 Pulse 67 10/27/18 11:40 Resp 18 10/27/18 11:40 BP 105/59 10/27/18 11:40 Pulse Ox 93 L 10/27/18 11:40 Intake & Output 10/26/18 10/27/18 10/27/18 18:59 06:59 18:59 Intake Total 2140 1160 Output Total 771 1670 Balance 1369 -1670 1160 Weight 86.5 kg 87.4 kg Intake: IV 1600 Oral 540 1160 Output: Chest Tube Drainage 56 Chest Tube Left Lateral 56 Chest Drainage 35 Left Lateral Chest 35 Urine 675 1635 Estimated Blood Loss 40 Other: Voiding Method Urinal # Voids 0 - Exam The patient appeared well nourished and normally developed. Vital signs as documented. Head exam is unremarkable. No scleral icterus or corneal arcus noted. Neck is without jugular venous distension, thyromegaly, or carotid bruits. Carotid upstrokes are brisk bilaterally. Lungs are diminished in the left lung base and the patient has a chest tube in place without evidence of any significant air leak and output is minimal at this point in time.. Cardiac exam reveals the PMI to be normally sized and situated. Rhythm is regular. First and second heart sounds normal. No murmurs, rubs or gallops. Abdominal exam reveals normal bowel sounds, no masses, no organomegaly and no aortic enlargement. Extremities are nonedematous and both femoral and pedal pulses are normal.Examination of the skin revealed no evidence of significant rashes, suspicious appearing nevi or other concerning lesions. Neurologically the patient is awake and alert and there is no focal neurological deficits. - Labs CBC & Chem 7: 10/27/18 06:54 10/27/18 06:54 Labs: Abnormal Lab Results - Last 24 Hours (Table) 10/27/18 10/27/18 Range/Units 06:54 06:54 RBC 4.23 L (4.30-5.90) m/uL Hgb 12.5 L (13.0-17.5) gm/dL Hct 38.6 L (39.0-53.0) % Glucose 103 H (74-99) mg/dL Microbiology - Last 24 Hours (Table) 10/26/18 08:37 Gram Stain - Preliminary Lung - Left Tissue Culture - Preliminary 10/26/18 08:37 Acid Fast Bacilli Smear - Final Lung - Left Acid Fast Bacilli Culture - Preliminary 10/26/18 08:37 Fungal Culture - Preliminary Lung - Left 10/26/18 08:37 Anaerobic Culture - Preliminary Lung - Left Assessment and Plan Assessment: Impression: 1 left lower lobe mass measuring 2.2 x 2 x 1.6 cm in size and the patient had an outpatient PET scan that showed increased SUV and the findings highly suspicious for malignancy. The patient is post thoracoscopic wedge resection of the lung mass and the patient is currently postop day #1 2 left sided chest tube, post thoracoscopic wedge lung mass resection 3 coronary artery disease with a recent non-STEMI and the patient has undergone stenting of the LAD with a bare metal stent 4 COPD 5 smoker 6 degenerative arthritis 7 chronic back and neck pain Plan: The patient was seen and evaluated by Dr. Knott. Follow-up chest x-ray following chest tube removal was reviewed. The patient is cleared for discharge from the pulmonary standpoint. He will follow up with Dr. Knott in our office in 1-2 weeks' time. He is encouraged to call sooner with any questions or concerns. I, the cosigning physician, performed a history & physical examination of the patient. Lungs sounds with crackles in left posterior base. Maintaining good O2 saturations in the 90s on room air. I discussed the assessment and plan of care with my nurse practitioner, Caroline Nevarez. I attest to the above note as dictated by her.
--- NOTE | 2018-10-28 13:55 | P.DS ---
Providers Date of admission: 10/26/18 05:57 Expected date of discharge: 10/27/18 Attending physician: Joshua Arredondo Consults: 10/26/18 09:31 Consult Physician Routine Consulting Provider: Otilio Knott Consult Reason/Comments: Pulmonary Management Do you want consulting provider notified?: Yes Primary care physician: [facility] Course: FINAL DIAGNOSIS: 1. Lung mass left lower lobe 2. Current tobacco dependence 3. Coronary artery disease with recent stenting to LAD PRINCIPAL PROCEDURE: 1. Left thoracoscopic wedge resection of the mass in the left lower lobe HISTORY OF PRESENT ILLNESS: This is a 68-year-old active male gentleman who follows at [facility] for primary care. Recently he had shortness of breath and came into the emergency department. He was worked up by cardiology and had a heart catheterization where he was found to have significant LAD stenosis and stenting was placed. During the admission he had a computed tomography scan which demonstrated a spiculated nodule in the left lower lobe consistent with lung cancer. He subsequently underwent a PET scan which demonstrated marketed uptake in the primary tumor and no evidence of metastasis. He also had a small area of uptake in the left thyroid. He has followed with Dr. Knott for pulmonology. The patient was referred to Dr. Arredondo from cardiothoracic surgery. He was recommended to undergo lobectomy, however the patient was insistent that he only wanted a wedge resection at this time. The usual perioperative course was discussed in detail with the patient, all risks and benefits were explained, all questions were answered, and consent was obtained to proceed with surgery. He was scheduled at the earliest possible surgery date, and was encouraged to quit smoking prior to surgery. HOSPITAL COURSE: The patient was brought to the hospital on 10/26/2018, taken to the preoperative area, prepared in the usual fashion, and subsequently taken to the operating room where Dr. Arredondo performed a left thoracoscopic wedge resection of the left lower lobe mass. Upon completion of surgery the patient was extubated and taken to the recovery room for continued monitoring. Eventually he was admitted to [address] [place] [address] cardiac step-down unit, there was no air leak in his chest tube and it was to placed to waterseal the night of surgery. Follow-up chest x-ray the next morning was stable, the patient continued to have no air leak, and his left pleural chest tube was discontinued on postop day #1. His oxygen was titrated down, he was tolerating oral diet, his pain was controlled, and he was ready to be discharged to home on postoperative day #1. He received written and verbal instruction regarding his medications, activity restrictions, signs and symptoms requiring physician notification, and follow-up appointments. COMPLICATIONS: The patient experienced no postoperative complications. Patient Condition at Discharge: Stable Plan - Discharge Summary Discharge Rx Participant: No New Discharge Prescriptions: New Acetaminophen Tab [Tylenol] 1,000 mg PO Q6HR PRN tab PRN Reason: Fever and/ or MILD Pain Continue Aspirin 81 mg PO DAILY chew Nitroglycerin Sl Tabs [Nitrostat] 0.4 mg SUBLINGUAL Q5M PRN #25 tab PRN Reason: Chest Pain Ticagrelor [Brilinta] 90 mg PO BID #30 tab Discharge Medication List Aspirin 81 mg PO DAILY chew 08/06/18 [Rx] Nitroglycerin Sl Tabs [Nitrostat] 0.4 mg SUBLINGUAL Q5M PRN #25 tab 08/06/18 [Rx] Ticagrelor [Brilinta] 90 mg PO BID #30 tab 08/06/18 [Rx] Acetaminophen Tab [Tylenol] 1,000 mg PO Q6HR PRN tab 10/27/18 [Rx] Follow up Appointment(s)/Referral(s): Joshua Arredondo MD [STAFF PHYSICIAN] - 11/16/18 1:30 pm Otilio Knott MD [STAFF PHYSICIAN] - 11/02/18 2:30 pm Patient Instructions/Handouts: Video Assisted Thoracoscopic Surgery (DC) Activity/Diet/Wound Care/Special Instructions: DISCHARGE INSTRUCTIONS: 1. No driving for 2 weeks, or until physician gives their ok. 2. No lifting, pushing, or pulling more than 10 pounds for 2 weeks. The physician will advise of any restriction changes. 3. Continue pain control per as needed orders. Alternate acetaminophen (Tylenol) and ibuprofen (Motrin/Advil) for pain. 4. Continue with incentive spirometry and splinting until otherwise directed by the physician. 5. Leave chest tube dressing for 48 hours. After that, remove all dressings and shower daily. 6. Routine incision care. No powders, lotions, ointments on incisions. 7. Please call surgeon/HEALTH AND PHYSICAL EDUCATION PROFESSOR for temp greater than 101 F or purulent drainage from incisions. Fabiola Rodriguez NP Discharge Disposition: HOME SELF-CARE
== END 2018-10-27 16:39 | disposition home or self-care (01) | DRG 168 ==
LOC: 2ORMAIN 05:57 → 3SCARD 10:35
PROVIDERS: ADMIT Thoracic Surgery (Cardiothoracic Vascular Surgery); ATTEND Thoracic Surgery (Cardiothoracic Vascular Surgery)
PROC: 0BBJ4ZX Excision of Left Lower Lung Lobe, Percutaneous Endoscopic Approach, Diagnostic (ICD-10-PCS; principal; 2018-10-26 07:30)
DX: C34.32 Malignant neoplasm of lower lobe, left bronchus or lung (principal); I25.10 Atherosclerotic heart disease of native coronary artery without angina pectoris; E78.5 Hyperlipidemia, unspecified; M54.9 Dorsalgia, unspecified; G89.29 Other chronic pain; M19.90 Unspecified osteoarthritis, unspecified site; J44.9 Chronic obstructive pulmonary disease, unspecified; M54.2 Cervicalgia; F17.210 Nicotine dependence, cigarettes, uncomplicated; Z95.5 Presence of coronary angioplasty implant and graft; Z79.02 Long term (current) use of antithrombotics/antiplatelets; Z79.82 Long term (current) use of aspirin; Z79.899 Other long term (current) drug therapy; I25.2 Old myocardial infarction; Z80.1 Family history of malignant neoplasm of trachea, bronchus and lung
CPT/HCPCS: 71045; 71046; 80048; 85025; 87070; 87075; 87102; 87116; 87205; 87206; 88307; 88313; 88342; 94640; 94760

== ENCOUNTER 2019-01-18 10:20 | Emergency (ER) | payer MEDICARE, OTHER ==
[2019-01-18 10:24] VITALS: BP 118/66; PULSE 72; RESP 18; TEMP 97.6
--- NOTE | 2019-01-18 10:39 | ED ---
General Adult HPI - General Chief complaint: Extremity Injury, Lower Stated complaint: lt leg calf pain Time Seen by Provider: 01/18/19 10:26 Source: patient, RN notes reviewed, old records reviewed Mode of arrival: wheelchair Limitations: no limitations - History of Present Illness Initial comments: 68-year-old male patient passed history of COPD, coronary artery disease, reported STEMI and stent placement presents ED approximately 2 weeks of left lower extremity pain. Patient is on Plavix. Patient reports that he has pain in his calf as well as his distal fibula. Patient denies any recent falls or trauma. Patient is normally very active, however states that the pain has caused him to decrease his activity. Patient denies any active cancer, not a history of thromboembolism, denies any recent travel or exogenous hormone products. Denies any chest pain or shortness of breath. Denies any other complaints at this time. Systemic: Pt denies fatigue, fever/chills, rash. Pt denies weakness, night sweats, weight loss. Neuro: Pt denies headache, visual disturbances, syncope or pre-syncope. HEENT: Pt denies ocular discharge or irritation, otalgia, rhinorrhea, pharyngitis or notable lymphadenopathy. Cardiopulmonary: Pt denies chest pain, SOB, heart palpitations, dyspnea on exertion. Abdominal/GI: Pt denies abdominal pain, n/v/d. : Pt denies dysuria, burning w/ urination, frequency/urgency. Denies new onset urinary or bowel incontinence. MSK: Pt denies loss of strength or function in extremities. Neuro: Pt denies new onset weakness, paresthesias. - Related Data Previous Rx's Medication Instructions Recorded Aspirin 81 mg PO DAILY chew 08/06/18 Nitroglycerin Sl Tabs [Nitrostat] 0.4 mg SUBLINGUAL Q5M PRN #25 tab 08/06/18 Ticagrelor [Brilinta] 90 mg PO BID #30 tab 08/06/18 Acetaminophen Tab [Tylenol] 1,000 mg PO Q6HR PRN tab 10/27/18 Acetaminophen Tab [Tylenol Tab] 500 mg PO Q6H #30 tablet 01/18/19 Acetaminophen Tab [Tylenol Tab] 500 mg PO Q8HR PRN #30 tablet 01/18/19 Allergies Allergy/AdvReac Type Severity Reaction Status Date / Time No Known Allergies Allergy Verified 01/18/19 10:24 Review of Systems ROS Statement: Those systems with pertinent positive or pertinent negative responses have been documented in the HPI. ROS Other: All systems not noted in ROS Statement are negative. Past Medical History Past Medical History: Coronary Artery Disease (CAD), Hyperlipidemia Additional Past Medical History / Comment(s): COPD, left lower lobe mass, coronary artery disease, hyperlipidemia, chronic back pain, degenerative arthritis, recent non-STEMI requiring emergent cardiac catheterization and insertion of a bare metal stent in the LAD., Hx of rt leg fx requiring a cast. History of Any Multi-Drug Resistant Organisms: None Reported Past Surgical History: Heart Catheterization With Stent Additional Past Surgical History / Comment(s): 08/04/18 HEART CATH WITH STENT. neck sx-cervical discectomy, rt side benign salivary Growth removed Past Anesthesia/Blood Transfusion Reactions: No Reported Reaction Date of Last Stent Placement:: 08/05/18 Past Psychological History: No Psychological Hx Reported Smoking Status: Current every day smoker Past Alcohol Use History: Occasional Past Drug Use History: None Reported - Past Family History Father Family Medical History: GI Bleed Additional Family Medical History / Comment(s): arrythmia. AT 72. Mother Family Medical History: Cancer Additional Family Medical History / Comment(s): age 57 from lung cancer- was non smoker. General Exam - General Exam Comments Initial Comments: Constitutional: NAD, AOX3, Pt has pleasant affect. HEENT: NC/AT, trachea midline, neck supple, no lymphadenopathy. Posterior pharynx non erythematous, without exudates. External ears appear normal, without discharge. Mucous membranes moist. Eyes PERRLA, EOM intact. There is no scleral icterus. No pallor noted. Cardiopulmonary: RRR, no murmurs, rubs or gallops, no JVD noted. Lungs CTAB in anterior and posterior camacho. No peripheral edema. Abdominal exam: Abdomen soft and non-distended. Abdomen non-tender to palpation in all 4 quadrants. Bowel sounds active in LLQ. No hepatosplenomegaly. No ecchymosis Neuro: CN II-XII grossly intact. No nuchal rigidity. No raccon eyes, no torres sign, no hemotympanum. No cervical spinal tenderness. MSK: No posterior calf tenderness bilaterally, homans sign negative bilaterally. Posterior tibialis and radial pulse +2 bilaterally. Distal pulses intact and equal bilaterally. Sensation intact in upper and lower extremities. Full active ROM in upper and lower extremities, 5/5 stregnth. Limitations: no limitations Course Vital Signs 01/18/19 10:22 Temperature 97.6 F Pulse Rate 72 Respiratory 18 Rate Blood Pressure 118/66 O2 Sat by Pulse 96 Oximetry Medical Decision Making - Medical Decision Making 68-year-old male patient passed history of COPD, coronary artery disease, report ed STEMI and stent placement presents ED approximately 2 weeks of left lower extremity pain. Patient is on Plavix. Patient reports that he has pain in his calf as well as his distal fibula. Patient denies any recent falls or trauma. Patient is normally very active, however states that the pain has caused him to decrease his activity. Patient denies any active cancer, not a history of thromboembolism, denies any recent travel or exogenous hormone products. Denies any chest pain or shortness of breath. Denies any other complaints at this time. Patient vital signs stable, afebrile. Physical exam did not display acute pathology. Ultrasound of left lower extremity did not display any evidence of DVT. Plain film did not display acute process. Patient's pain likely secondary to myalgia. Patient discharged with tylenol, and orthopedic follow- up. Case discussed with Dr. Garcia. Disposition Clinical Impression: Myalgia Disposition: HOME SELF-CARE Condition: Stable Instructions (If sedation given, give patient instructions): Musculoskeletal Pain (ED) Additional Instructions: Patient to adhere to previously discussed treatment plan and will take medication(s) as directed. Patient to follow up with PCP in 1-2 days. Patient to return to ED if symptoms do not improve. Follow-up with primary care provider and orthopedic consult 1-2 days. Use tylenol as needed for pain. Prescriptions: Acetaminophen Tab [Tylenol Tab] 500 mg PO Q8HR PRN #30 tablet PRN Reason: pain Acetaminophen Tab [Tylenol Tab] 500 mg PO Q6H #30 tablet Is patient prescribed a controlled substance at d/c from ED?: No Referrals: [facility]inic [Primary Care Provider] - 1-2 days Phu Delarosa DO [Doctor of Osteopathic Medicine] - 1-2 days
--- NOTE | 2019-01-18 10:46 | XR ---
EXAMINATION TYPE: XR tibia fibula LT DATE OF EXAM: 01/18/2019 CLINICAL HISTORY: Left lower extremity pain with no known injury TECHNIQUE: Two views of the left leg are obtained. COMPARISON: None. FINDINGS: There is no acute fracture or dislocation seen in the left tibia or fibula. The left knee and ankle joints appear aligned. Mild medial compartment joint space narrowing and small tricompartm ental osteophytes are seen of the left knee. The overlying soft tissue appears unremarkable. IMPRESSION: There is no acute fracture or dislocation seen in the left tibia or fibula.
--- NOTE | 2019-01-18 11:19 | US ---
EXAMINATION TYPE: US venous doppler duplex LE LT DATE OF EXAM: 01/18/2019 11:11 AM COMPARISON: NONE CLINICAL HISTORY: Pain. Calf pain, no history of blood clot, patient on blood thinners SIDE PERFORMED: Left TECHNIQUE: The lower extremity deep venous system is examined utilizing real time linear array sonog beryl with graded compression, doppler sonography and color-flow sonography. VESSELS IMAGED: External Iliac Vein (EIV) Common Femoral Vein Deep Femoral Vein Greater Saphenous Vein * Femoral Vein Popliteal Vein Small Saphenous Vein * Proximal Calf Veins (* superficial vessels) Grayscale, color doppler, spectral doppler imaging performed of the deep veins of the left lower extr emity. There is normal flow, compressibility, vascular waveforms. Left Leg: Negative for DVT IMPRESSION: No sonographic evidence of deep venous thrombosis within the left lower extremity.
== END 2019-01-18 12:19 | disposition home or self-care (01) ==
LOC: EC 10:20
DX: M79.18 Myalgia, other site (principal); I25.10 Atherosclerotic heart disease of native coronary artery without angina pectoris; I25.2 Old myocardial infarction; F17.200 Nicotine dependence, unspecified, uncomplicated; Z87.81 Personal history of (healed) traumatic fracture; Z95.5 Presence of coronary angioplasty implant and graft; Z98.890 Other specified postprocedural states
CPT/HCPCS: 99284

== ENCOUNTER → 2019-05-21 | Outpatient (CLI) | payer OTHER ==
[2019-05-21 11:08] LABS: ALT 37 U/L (21-72); AST 29 U/L (17-59); Cholesterol 191 mg/dL (<200); HDL Cholesterol 42 mg/dL (40-60); LDL Cholesterol,Calculated 106 mg/dL (0-99); Triglycerides 214 mg/dL (<150)
--- NOTE | 2019-05-21 12:11 | CT ---
EXAMINATION TYPE: CT chest w con DATE OF EXAM: 05/21/2019 COMPARISON: August 03, 2018 HISTORY: Lung cancer CT DLP: 352.9 mGycm Automated exposure control for dose reduction was used. CONTRAST: CT scan of the chest is performed with IV Contrast, patient injected with 100 mL of Isovue 300. FINDINGS: LUNGS: Post surgical changes left lower lobe with surgical sutures in place. Previously noted mass hyman s been removed. No evidence for recurrence. No new masses identified. The lungs are free of infiltrat e or volume loss. No evidence for pleural effusion. MEDIASTINUM: There are no greater than 1 cm hilar or mediastinal lymph nodes. No pericardial effusi on is seen. Thoracic aorta is of normal caliber. The heart is not enlarged. UPPER ABDOMEN: No significant abnormality appreciated. OTHER: No additional significant abnormality is seen. IMPRESSION: 1. Postsurgical resection of left lower lobe mass seen previously. No evidence for tumor recurrence o r new mass at this time.
== END | disposition home or self-care (01) ==
LOC: RADCTMAIN 10:07
PROVIDERS: ATTEND Internal Medicine Critical Care Medicine
DX: C34.90 Malignant neoplasm of unspecified part of unspecified bronchus or lung (principal); Z90.2 Acquired absence of lung [part of]
CPT/HCPCS: 80061; 82565; 84450; 84460; 84520; 71260; 36415; Q9967

== ENCOUNTER → 2020-03-14 | Outpatient (CLI) | payer OTHER ==
--- NOTE | 2020-03-14 18:15 | CT ---
EXAMINATION TYPE: CT chest w con DATE OF EXAM: 03/14/2020 COMPARISON: CT chest 05/21/2019. Renal ultrasound 10/24/2018. HISTORY: Lung cancer CT DLP: 975 mGycm Automated exposure control for dose reduction was used. CONTRAST: CT scan of the chest is performed with IV Contrast, patient injected with 100 mL of Isovue 300. FINDINGS: LUNGS: Status post left lower lobe lung wedge resection changes. Lungs are grossly clear. No concerni ng parenchymal mass or nodule identified. No pleural effusion. No pneumothorax. The tracheobronchial tree is patent. MEDIASTINUM/SOFT TISSUES: No axillary, hilar, or mediastinal lymphadenopathy greater than 1 cm. Cardi ac size is normal. No pericardial effusion. No thoracic aortic aneurysm. Hypodense left thyroid nodul e incompletely visualized and redemonstrated. UPPER ABDOMEN: No acute abnormality demonstrated. OSSEOUS: No acute osseous abnormality. IMPRESSION: No evidence of recurrent or metastatic lung cancer in the chest.
== END | disposition home or self-care (01) ==
LOC: RADCTMAIN 13:40
PROVIDERS: ATTEND Internal Medicine Critical Care Medicine
DX: C34.90 Malignant neoplasm of unspecified part of unspecified bronchus or lung (principal); Z88.8 Allergy status to other drugs, medicaments and biological substances
CPT/HCPCS: 82565; 84520; 71260; 36415; Q9967

== ENCOUNTER 2020-07-08 07:11 | Day surgery (SDC) | payer OTHER ==
[2020-07-03 11:08] VITALS: BMI 25.7
[~2020-07-08 07:11] MED LIST changes: -DEXAMETHASONE SOD PHOSPHATE 10 MG/ML 1 ML VIAL IV ONE; +LIDOCAINE 1% (10MG/ML) FOR IV START INTRADERMA PRN; -LIDOCAINE 1% 20 ML VIAL (10MG/ML) FOR IV START INTRADERMA PRN; -MIDAZOLAM (PF) 2 MG/2 ML VIAL IV PRN; -ONDANSETRON 4 MG/2 ML VIAL IVP ONE; -SCOPOLAMINE 1.5MG/72HR PATCH TRANSDERM ONE; -ceFAZolin IN SWFI 2 GM/20 ML SYRINGE IVP ONE
[2020-07-08 07:26] VITALS: RESP 16; TEMP 98.4
[2020-07-08] MEDS ORDERED: PROPOFOL 10 MG/ML 20 ML VIAL IV ONE (08:07)
--- NOTE | 2020-07-08 08:48 | P.PCN ---
Date of Procedure: 07/08/20 Description of Procedure: BRIEF HISTORY: Patient is a 70-year-old male presenting for outpatient colonoscopy for evaluation of other fecal abnormalities. He reports stool testing with colon guard was positive for blood. No prior colonoscopies. No change in bowel habits. No family history of colon cancer. PROCEDURE PERFORMED: Colonoscopy with polypectomy. PREOPERATIVE DIAGNOSIS: Other fecal abnormalities, positive Frazee, patient reports no prior colonoscopies. ESTIMATED BLOOD LOSS: Minimal. IV sedation per Anesthesia. PROCEDURE: After informed consent was obtained, the patient, was brought into the endoscopy unit. IV sedation was administered by Anesthesia under continuous monitoring. Digital rectal examination was normal. Initially the Olympus CF-190 flexible video colonoscope was then inserted in the rectum, gradually advanced into the cecum without any difficulty. Careful examination was performed as the scope was gradually being withdrawn. Ileocecal valve and the appendiceal orifice were visualized and appeared normal. Prep was excellent. Mucosa of the cecum, ascending colon, transverse colon, descending colon, sigmoid colon, and rectum appeared normal. Multiple scattered small diverticula. The sigmoid colon. 2 flat polyps measuring 4 mm in the ascending colon and 5 mm in the descending colon removed with cold snare polypectomy. Pedunculated 11 mm sigmoid colon polyp removed with hot snare polypectomy. Retroflexion was performed in the rectum and no lesions were seen, Low-grade internal hemorrhoids noted. The patient tolerated the procedure well. IMPRESSION: Pedunculated sigmoid polyp removed with hot snare polypectomy. 2 flat polyps removed from the ascending and descending colon with cold snare polypectomy. Mild sigmoid diverticulosis. Low-grade internal hemorrhoids. RECOMMENDATIONS: Findings of this examination were discussed with the patient and his family. Okay to resume diet. Okay to resume medications. Okay to resume aspirin therapy. Await pathology from polypectomies. Recommend repeat colonoscopy in 3 years pending pathology from polypectomy.
[2020-07-08 09:06] VITALS: BP 126/74; PULSE 62
== END 2020-07-08 09:45 | disposition home or self-care (01) ==
LOC: ORWHC2ENDO 07:11
PROVIDERS: ATTEND Internal Medicine
DX: D12.4 Benign neoplasm of descending colon (principal); D12.2 Benign neoplasm of ascending colon; D12.5 Benign neoplasm of sigmoid colon; K57.30 Diverticulosis of large intestine without perforation or abscess without bleeding; K64.8 Other hemorrhoids; I25.2 Old myocardial infarction; I25.10 Atherosclerotic heart disease of native coronary artery without angina pectoris; I10 Essential (primary) hypertension; J44.9 Chronic obstructive pulmonary disease, unspecified; E78.5 Hyperlipidemia, unspecified; Z95.5 Presence of coronary angioplasty implant and graft; Z85.118 Personal history of other malignant neoplasm of bronchus and lung; Z79.82 Long term (current) use of aspirin; Z90.2 Acquired absence of lung [part of]; Z98.890 Other specified postprocedural states
CPT/HCPCS: 88305; 45385; J2704

== ENCOUNTER → 2021-12-29 | Outpatient (CLI) | payer OTHER ==
--- NOTE | 2021-12-29 14:11 | CT ---
EXAMINATION TYPE: CT chest wo/w con DATE OF EXAM: 12/29/2021 COMPARISON: 03/14/2020 HISTORY: Lung ca. Hx nodule removal/stent CT DLP: 816.60 mGycm Automated exposure control for dose reduction was used. CONTRAST: CT scan of the chest is performed with IV Contrast, patient injected with 70 mL of Isovue 300. FINDINGS: LUNGS: Stable postoperative changes left lower lobe. I do not see evidence for recurrent or residual mass. No new nodules or masses identified. Parenchymal scarring in the region of the lingula. No evid ence for infiltrate or pleural effusion. No groundglass density seen. MEDIASTINUM: There are no greater than 1 cm hilar or mediastinal lymph nodes. No pericardial effusi on is seen. Thoracic aorta is of normal caliber. The heart is not enlarged. UPPER ABDOMEN: No significant abnormality appreciated. OTHER: Nodule left thyroid lobe measures approximately 11 mm. IMPRESSION: Stable postoperative changes left lower lobe. I do not see evidence for recurrent or residual mass. N o new nodules or masses identified.
== END | disposition home or self-care (01) ==
LOC: RADCTMAIN 11:35
DX: D20.1 Benign neoplasm of soft tissue of peritoneum (principal)
CPT/HCPCS: 71270; 82565; 84520

== ENCOUNTER → 2023-05-17 | Outpatient (CLI) | payer OTHER ==
[2023-05-17 12:01] LABS: African American GFR (CKD) 73 (>60 ml/min/1.73 sqM); Blood Urea Nitrogen 24 mg/dL (9-20); Non-African American GFR(CKD) 63 (>60 ml/min/1.73 sqM)
--- NOTE | 2023-05-19 16:08 | CT ---
EXAMINATION TYPE: CT chest w con DATE OF EXAM: 05/17/2023 COMPARISON: 12/29/2021 HISTORY: 73-year-old male Z85.118, hx of lung ca. obs for mets TECHNIQUE: Contiguous axial scanning of the chest after the administration of 100 mL of Isovue 300. Coronal/sagittal reconstructions performed. CT DLP: 381.50mGycm. Automatic exposure control utilized for a dose reduction. FINDINGS: The heart is upper limits of normal in size without pericardial effusion. LAD coronary artery calcifi cations are present. Aorta normal caliber with conventional arch vessel branching anatomy. Stable underlying left thyroid lobe nodule measuring at least 1.5 cm. Unchanged 1 cm right hilar lymph node. No thoracic lymphadenopathy by CT size criteria. Strandy atelectasis and scarring in the lower lungs. Some focal patchy opacity and postsurgical dhaliwal e at the superior segment left lower lobe with stable line extending down the major fissure to the pe riphery of the left lower lung remains unchanged. No suspicious increasing soft tissue is identified. Background mild emphysematous change. No consolidation or pleural effusion. Tiny hiatal hernia. Suspect mild fatty infiltration of the liver in the visualized upper abdomen. Oth erwise, upper abdomen shows no gross abnormality. Bones: [facility] throughout the mid and lower thoracic spine. IMPRESSION: 1. Stable postsurgical and posttreatment change posterior left lower lobe. No evidence for recurrent or metastatic disease in the chest. 2. Background COPD with mild emphysema. Mild hepatic steatosis.
== END | disposition home or self-care (01) ==
LOC: RADCTMAIN 11:12
DX: J44.9 Chronic obstructive pulmonary disease, unspecified (principal); J43.9 Emphysema, unspecified; K76.0 Fatty (change of) liver, not elsewhere classified; Z85.118 Personal history of other malignant neoplasm of bronchus and lung
CPT/HCPCS: 82565; 84520; 71260; 36415; Q9967

== ENCOUNTER → 2023-11-07 | Outpatient (CLI) | payer OTHER ==
--- NOTE | 2023-11-07 08:32 | US ---
EXAMINATION TYPE: US duplex aorta DATE OF EXAM: 11/07/2023 COMPARISON: 05/17/2023 CLINICAL INDICATION: Male, 73 years old with history of Z87.891 PERSONAL HISTORY OF NICOTINE DEPENDEN CE; TECHNIQUE: Multiple sonographic images of the abdominal aorta are obtained. FINDINGS: EXAM MEASUREMENTS: Abdominal Aorta: Proximal: 2.4 x 2.0cm Mid: 2.4 x 2.4cm Distal: 2.1 x 2.3cm Bifurcation: Right Iliac: 1.3 x 1.1cm Left Iliac: 1.2 x 1.0cm IMPRESSION: No evidence for aortic aneurysm.
== END | disposition home or self-care (01) ==
LOC: RADUSWWP 07:38
PROVIDERS: ATTEND Family Medicine
DX: Z13.6 Encounter for screening for cardiovascular disorders (principal); Z87.891 Personal history of nicotine dependence
CPT/HCPCS: 93979

== ENCOUNTER → 2024-11-08 | Outpatient (CLI) | payer OTHER ==
[2024-11-08 08:42] LABS: African American GFR (CKD) 71 (>60 ml/min/1.73 sqM); Blood Urea Nitrogen 20 mg/dL (9-20); Non-African American GFR(CKD) 62 (>60 ml/min/1.73 sqM)
--- NOTE | 2024-11-08 10:41 | CT ---
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 TECHNIQUE: Multiple axial images were obtained through the chest. Sagittal and coronal reformats were created for review. MIP was performed on a separate workstation. Contrast used:100 mL of Isovue 300 with IV Contrast (None if empty) Oral contrast used: (None if empty) CT DLP: 712.60 mGycm, Automated exposure control for dose reduction was used. FINDINGS: LUNGS/ PLEURA postsurgical changes of left lower lobe superior segment. Stable morphology to the surg ical margins no new or enlarging mass or soft tissue. No new or enlarging pulmonary nodules. No focal consolidation, pneumothorax or pleural effusion. AIRWAY: Patent and unremarkable. HEART: Size within normal limits. Moderate coronary artery calcifications present. MEDIASTINUM: No gross evidence of adenopathy. VASCULATURE: No aortic aneurysm. MUSCULOSKELETAL: Moderate disc degeneration changes are present throughout the thoracolumbar spine se condary to osteophyte formation and facet joint arthropathy. SOFT TISSUES/LYMPH NODES: Unremarkable. LOWER NECK: No significant findings. UPPER ABDOMEN: No significant findings. IMPRESSION: Stable post surgical changes to the left lower lobe no evidence for lymphadenopathy or new or enlargi ng nodules. [facility], , 11/08/2024 10:38 AM
== END | disposition home or self-care (01) ==
LOC: RADCTMAIN 07:43
PROVIDERS: ATTEND Family Medicine
DX: D02.22 Carcinoma in situ of left bronchus and lung (principal)
CPT/HCPCS: 82565; 84520; 71270; 36415; Q9967